=== PATIENT | female | born 1960 | race Caucasian/White ===

== ENCOUNTER → 2023-01-25 09:15 | Outpatient (BNVA) | payer OTHER, SELFPAY | PROVIDERS: PCP Nurse Practitioner; Visit Provider Podiatrist Foot & Ankle Surgery | DX: S93.621A Sprain of tarsometatarsal ligament of right foot, initial encounter; W08.XXXA Fall from other furniture, initial encounter | CPT/HCPCS: 73630; 99203 ==

== ENCOUNTER 2023-01-30 19:28 | Emergency (ER) | payer OTHER, SELFPAY ==
[2023-01-30 19:33] VITALS: BP 111/70; PULSE 77; RESP 18; TEMP 36.7; O2SAT 98; BMI 20.1
--- NOTE | 2023-01-30 19:36 | ECG_ITS ---
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 Measurements Intervals [place] Rate: 89 P: 78 WV: 100 QRS: 61 QRSD: 86 T: 50 QT: 375 QTc: 457 Interpretive Statements SINUS RHYTHM WITH SHORT WV INTERVAL No previous ECG available for comparison Electronically Signed On 01-30-2023 23:23:46 CDT by Home Spencer M.D. [id number]
--- NOTE | 2023-01-30 19:50 | XRR_ITS ---
PROCEDURE INFORMATION: Exam: XR Chest Exam date and time: 01/30/2023 7:59 PM Age: 62 years old Clinical indication: Cough and shortness of breath; Additional info: SOB TECHNIQUE: Imaging protocol: Radiologic exam of the chest. Views: 1 view. COMPARISON: No relevant prior studies available. FINDINGS: Tubes, catheters and devices: Radiopaque structures 2.2 cm in length by 0.3 cm in width projected over mid to upper heart can be correlated for devices overlying the patient. Lungs: Unremarkable. No consolidation. Pleural spaces: Unremarkable. No pleural effusion. No pneumothorax. Heart/Mediastinum: Unremarkable. No cardiomegaly. Bones/joints: No acute findings. XR/XR chest 1V portable [id number] IMPRESSION: No acute findings.
[2023-01-30] MEDS: dexamethasone 10 mg/mL INJ IM (20:11)
[2023-01-30] MEDS: ipratropium-albuterol 3 mL Neb INHALATION (20:21)
[2023-01-30] MEDS: albuterol 2.5 mg/3 mL Neb INHALATION (20:21)
[2023-01-30 20:24] VITALS: PULSE 83; RESP 18; O2SAT 97
[2023-01-30 20:32] VITALS: PULSE 85; RESP 18; O2SAT 97
--- NOTE | 2023-01-30 21:18 | ED_ITS ---
HPI - Asthma General: Chief Complaint: Asthma Stated Complaint: shortness of breath, coughing Time Seen by Provider: 01/30/23 19:48 History of Present Illness: 62-year-old female with a history of asthma presents emergency room with sudden onset of wheezing and nonproductive cough that started about 30 to 40 minutes prior to coming to the emergency room. Patient described the cough as nonproductive denies coughing up blood or vomiting blood. No leg swelling or calf tenderness. No chest pain, nausea or vomiting. No known sick contact or recent foreign travel denies any runny nose any congestion or sore throat. Associated symptoms: Reports non-productive cough; Deny fever(s) or hemoptysis Review of Systems General: Reports: 10 or more systems reviewed and unremarkable except in HPI and below Const: Denies: fever(s), chills, body aches, change in appetite, change in weight, fatigue, malaise, night sweats, diaphoresis, change in sleep pattern or daytime sleepiness Resp: Reports: dyspnea, non-productive cough and wheezing; Denies: pain on inspiration, change in phlegm color, hemoptysis or chest congestion GI: Denies: abdominal pain, nausea, vomiting, hematemesis, coffee ground emesis or dysphagia PFSH ED PFSH: Social History (Updated 01/25/23 @ 09:27 by Dominic Brady LPN) Smoking and tobacco/nicotine status: former use of tobacco/nicotine Alcohol intake: former Substance/Drug Use: former Physical Exam Const: COMMON NORMALS: no acute distress, average body habitus, patient oriented x3, no limitations, healthy appearing, alert and well nourished HENMT: COMMON NORMALS: normocephalic, atraumatic, hearing grossly normal bilaterally, external ears normal, EAC's normal, TM's normal bilaterally, Normal external nose present, Normal nasal mucous membranes and turbinates present, moist oral mucous membranes, oropharynx normal, dentition normal and gingiva normal HEAD & SCALP: normocephalic and atraumatic NOSE: Normal external nose present and Normal nasal mucous membranes and turbinates present EXTERNAL EAR: Yes external ears normal EXTERNAL AUDITORY CANAL: EAC's normal TYMPANIC MEMBRANE: TM's normal bilaterally Neck/C-Spine: COMMON NORMALS: no JVD Chest: COMMONS NORMALS: normal inspection of the chest, normal palpation of entire chest wall, normal inspection of the breasts and normal palpation of the breasts Breast/axilla inspection: Yes normal inspection of the breasts BREAST/AXILLA PALPATION: Yes normal palpation of the breasts Resp: COMMON NORMALS: normal respiratory effort, No retractions, No use of accessory muscles and percussion normal AUSCULTATION: no crackles, no rales and wheezes PERCUSSION: percussion normal Cardio: COMMON NORMALS: no JVD, regular rate, regular rhythm, S1 normal heart sound present, S2 normal heart sound present, No gallops present (Cardio), No clicks present (Cardio), No murmurs present (Cardio), No rub (Cardio) and Peripheral pulses 2+ throughout RATE: regular rate RHYTHM: regular rhythm HEART SOUNDS: S1 normal heart sound present and S2 normal heart sound present PERIPHERAL PULSES: Peripheral pulses 2+ throughout GI: COMMON NORMALS: Normal to inspection, nondistended, normoactive bowel sounds present, Soft to palpation, non-tender, No hepatosplenomegaly present, no masses and no bruits PALPATION: Yes Soft to palpation and Yes No hepatosplenomegaly present Extremity: COMMON NORMALS: normal to inspection, full ROM, capillary refill normal, no joint enlargement, no clubbing, cyanosis or edema, no calf tenderness and no pedal edema Neuro: COMMON NORMALS: patient oriented x3 SENSORIUM/ORIENTATION: Yes alert Skin: COMMON NORMALS: no rashes or lesions noted, no wounds, turgor normal, no jaundice, no petechiae and no mottling GENERAL SKIN EXAM: no rashes or lesions noted and turgor normal Course Reevaluation(s): Reevaluation #1: Upon assessment patient was comfortable reading a book no acute distress. Patient reveals improvement with current treatment. Vital Signs: Vital signs: Vital Signs Temperature 98.0 F 01/30/23 19:33 Pulse Rate 85 01/30/23 20:32 Respiratory Rate 18 01/30/23 20:32 Blood Pressure 111/70 01/30/23 19:33 Pulse Oximetry 97 01/30/23 20:32 Oxygen Delivery Me thod Room Air 01/30/23 20:32 MDM - Asthma Medical Decision Making Patient made comfortable emergency room and had x-ray was given multiple nebulizer treatment with IM steroid. I discussed the x-ray finding with the patient and close follow-up with PCP recommended Differential Diagnosis Likely acute exacerbation, status asthmaticus, acute asthmatic bronchitis, PE, pneumonia, COPD exacerbation, CHF/Pulmonary Edema, pulmonary edema dystolic, ARDS, pneumothorax and foreign body in trachea Lab Data Radiology Impressions Chest X-Ray 01/30/23 19:50 IMPRESSION: No acute findings. XR interpretation done by ED provider, pending radiology final review EKG Data EKG 1: Interpretation: Sinus rhythm rate of [address] changes[address] No ST elevation ST depression. [place] interval 100 QRS duration 86 Discharge Plan Discharge Patient Disposition: Home Clinical Impression: Asthma with acute exacerbation Condition: Stable Prescriptions: New Zithromax Z-Rocael 250 mg tablet 250 mg PO DAILY 5 Days Qty: 6 0RF Medrol (Rocael) 4 mg tablets,dose pack 4 mg PO DAILY Qty: 21 0RF No Action albuterol sulfate [ProAir HFA] 90 mcg/actuation HFA aerosol inhaler 2 puff inhalation Q6H PRN losartan 25 mg tablet 25 mg PO DAILY trazodone 50 mg tablet 50 mg PO DAILY (DME) custom molded arch supports See Rx Instructions .Route .MEDSUPPLY Qty: 1 0RF Rx Instructions: As directed to be made by the hardeep puente Discharge Orders: Discharge ED (Routine); Ordered 01/30/23 Ordered By: Mauro Mckay Referrals: Amber James FNP [Primary Care Provider] - Discharge Diet: Advance as tolerated Patient Instructions: Opioid Safety, Pain Management Coding Level of Care Code ED Newspaper Reporter for John Sheriadn
[2023-01-30 21:24] VITALS: BP 118/81; PULSE 88; O2SAT 98
== END 2023-01-30 22:13 | disposition home or self-care (01) ==
PROVIDERS: Emergency Provider Family Medicine; PCP Nurse Practitioner
DX: J45.901 Unspecified asthma with (acute) exacerbation (principal); Z87.891 Personal history of nicotine dependence
CPT/HCPCS: 71045; 93005; 94640; 96372; 99284; J1100; J7613

== ENCOUNTER 2023-01-31 11:17 | Outpatient (CLI) | payer OTHER, SELFPAY ==
--- NOTE | 2023-01-31 11:44 | MM_ITS ---
WS: [id number] BILATERAL 3D TOMOSYNTHESIS DIGITAL SCREENING MAMMOGRAPHY WITH CAD CLINICAL INFORMATION: SCREENING HISTORY: Screening mammogram. No current complaints. COMPARISON: 11/01/2021 TECHNIQUE: Bilateral CC and MLO views. FINDINGS: The breasts are composed of heterogeneous fibroglandular density tissue, which can limit the detectio n of small underlying mass lesions. No suspicious mass, asymmetry, calcifications, or architectural d istortion. No evidence of malignancy. Vascular calcification. IMPRESSION: MM/[place] [id number] BI-RADS: 2-Benign FOLLOW UP: 1 Year Follow-up Recommend return to annual screening mammography.
== END 2023-01-31 11:18 | disposition home or self-care (01) ==
PROVIDERS: PCP Nurse Practitioner; Visit Provider Nurse Practitioner
DX: Z12.31 Encounter for screening mammogram for malignant neoplasm of breast (principal)
CPT/HCPCS: 77063; 77067

== ENCOUNTER → 2023-02-22 10:16 | Outpatient (BNVA) | payer OTHER, SELFPAY | PROVIDERS: PCP Nurse Practitioner; Visit Provider Podiatrist Foot & Ankle Surgery | DX: S93.621D Sprain of tarsometatarsal ligament of right foot, subsequent encounter (principal); W20.8XXD Other cause of strike by thrown, projected or falling object, subsequent encounter | CPT/HCPCS: 99213 ==

== ENCOUNTER 2023-02-24 08:59 | Outpatient (CLI) | payer OTHER, SELFPAY ==
--- NOTE | 2023-02-24 09:30 | MR_ITS ---
WS: [id number] EXAMINATION: MR foot RT wo con* [id number] ORDER DATE: 02/24/2023 9:31 AM COMPARISON: None. HISTORY: rule out lisfranc injury CONTRAST: None. TECHNIQUE: Sagittal T1, sagittal STIR, coronal PD, coronal T2, axial T1, axial T2, and axial PD imagi ng with fat saturation technique. FINDINGS: Mild bunion deformity. Normal second tarsometatarsal alignment. No evidence of Lisfranc fracture. Deep to the palpable marker is a small amount of subcutaneous edema. No fractures deep to the palpabl e marker. Metatarsals are otherwise normal in appearance with normal alignment. Normal visualized pro ximal phalanges. Normal cuboid. Normal navicular. Cuneiforms appear normal. No other suspicious findi ngs. IMPRESSION: 1. No evidence of Lisfranc fracture dislocation. 2. Normal bone marrow signal in the metatarsals. No acute fractures. 3. Mild subcutaneous edema deep to the palpable marker dorsal foot. 4. Mild bunion deformity.
== END 2023-02-24 09:00 | disposition home or self-care (01) ==
LOC: RAD 08:59
PROVIDERS: PCP Nurse Practitioner; Visit Provider Podiatrist Foot & Ankle Surgery
DX: S93.621A Sprain of tarsometatarsal ligament of right foot, initial encounter (principal); M21.6X1 Other acquired deformities of right foot; X58.XXXA Exposure to other specified factors, initial encounter; Y93.9 Activity, unspecified; Y92.9 Unspecified place or not applicable; Y99.9 Unspecified external cause status
CPT/HCPCS: 73718

== ENCOUNTER → 2023-02-28 07:59 | Outpatient (BNVA) | payer OTHER, SELFPAY | PROVIDERS: PCP Nurse Practitioner; Visit Provider Podiatrist Foot & Ankle Surgery | DX: M79.671 Pain in right foot (principal) | CPT/HCPCS: 99213 ==

== ENCOUNTER 2023-05-03 13:50 | Outpatient (CLI) | payer OTHER, SELFPAY ==
--- NOTE | 2023-05-03 15:21 | US_ITS ---
WS: [id number] ULTRASOUND RENAL TECHNIQUE: Ultrasound examination of both kidneys. CLINICAL INFORMATION: CKD ABNORMAL LABS COMPARISON: None. FINDINGS: RIGHT: Right kidney is normal in size and appearance. Echogenicity: Normal. Cortical thickness: 1.1 cm; Normal. Hydronephrosis: None. Perinephric fluid: None. Right kidney measures: 8.4 cm x 3.7 cm x 3.8 cm. LEFT: Left kidney is normal in size and appearance. Echogenicity: Normal. Cortical thickness: 1.0 cm; Normal. Hydronephrosis: None. Perinephric fluid: None. Left kidney measures: 8.6 cm x 3.6 cm x 3.0 cm. Normal visualized aorta. Normal bladder. IMPRESSION: 1. Normal renal ultrasound. No hydronephrosis. 2. Normal bladder.
== END 2023-05-03 13:51 | disposition home or self-care (01) ==
PROVIDERS: PCP Nurse Practitioner; Visit Provider Nurse Practitioner
DX: N18.9 Chronic kidney disease, unspecified (principal); R79.9 Abnormal finding of blood chemistry, unspecified
CPT/HCPCS: 76770

== ENCOUNTER → 2023-05-12 09:56 | Outpatient (BNVA) | payer OTHER, SELFPAY | PROVIDERS: PCP Nurse Practitioner; Visit Provider Student in an Organized Health Care Education/Training Program | DX: M23.307 Other meniscus derangements, unspecified meniscus, left knee | CPT/HCPCS: 99203 ==

== ENCOUNTER 2023-05-27 13:00 | Emergency (ER) | payer OTHER, SELFPAY ==
[2023-05-27 13:35] VITALS: BP 122/77; PULSE 73; RESP 16; TEMP 36.6; O2SAT 99; BMI 20.1
--- NOTE | 2023-05-27 13:43 | W.ED.SKABFB ---
HPI - Skin/Abscess/Foreign Bdy General: Chief complaint: Skin/Abscess/Foreign Body Stated complaint: Abscess Time Seen by Provider: 05/27/23 13:32 Source: patient Mode of arrival: ambulatory History of Present Illness: 62-year-old female presents emergency room complaining of abscess on the perineal area that began 2 days ago. Progressively worse no active drainage no fever sweats or chills complaint: rash Onset (ago): day(s) (2) Associated symptoms: Deny chills or fever(s) Review of Systems Const: Denies: fever(s) or chills Card: Denies: chest pain Resp: Denies: dyspnea GI: Denies: abdominal pain : Denies: dysuria, urinary frequency or urinary urgency Musc: Denies: neck pain or back pain Skin/Breast: Denies: rash PFSH ED PFSH: Social History Smoking and tobacco/nicotine status: former use of tobacco/nicotine Alcohol intake: former Substance/Drug Use: former Physical Exam Narrative: EXAM NARRATIVE: Examination of the perineal area to the right of the midline there is a small palpable nodule no overlying redness or erythema no pointing no active drainage it is slightly tender to touch it is a half a centimeter or less round in diameter. Course Vital Signs: Vital signs: Vital Signs Temperature 97.9 F 05/27/23 13:35 Pulse Rate 73 05/27/23 13:35 Respiratory Rate 16 05/27/23 13:35 Blood Pressure 122/77 05/27/23 13:35 Pulse Oximetry 99 05/27/23 13:35 Oxygen Delivery Me thod Room Air 05/27/23 13:35 MDM - Skin/Abscess/Foreign Bdy Medicial Decision Making At this point is a very small area I do not believe it would be easily amenable to incision and drainage. Recommend sitz bath's or applying moist heat. Start Bactrim DS 2 p.o. twice daily if not improving recheck with primary care if worsens significantly return to the emergency room. With that size and concern would be difficult to target well so small even with use of ultrasound I do not know that it could be adequately targeted. Would likely lead to more pain and discomfort then treating conservatively at this point did advise patient that may change it may increase in size may come to point drain its own which is fine if it does increase in size she may need to return to have it incised and drained. Differential Diagnosis Likely abscess of skin or subcutaneous tissue No radiology studies performed this visit Discharge Plan Discharge Patient Disposition: Home Clinical Impression: Abscess of skin or subcutaneous tissue Condition: Stable Prescriptions: New Bactrim DS 800-160 mg tablet 2 tab PO BID 7 Days Qty: 28 0RF No Action albuterol sulfate [ProAir HFA] 90 mcg/actuation HFA aerosol inhaler 2 puff inhalation Q6H PRN losartan 25 mg tablet 25 mg PO DAILY trazodone 50 mg tablet 50 mg PO DAILY (DME) custom molded arch supports See Rx Instructions .Route .MEDSUPPLY Qty: 1 0RF Rx Instructions: As directed to be made by the hardeep puente Medrol (Rocael) 4 mg tablets,dose pack 4 mg PO DAILY Qty: 21 0RF Discharge Orders: Discharge ED (Routine); Ordered 05/27/23 Ordered By: Kale Aguilar Referrals: Amebr James FNP [Primary Care Provider] - Discharge Diet: Usual diet Discharge Activity: Resume usual activity Patient Instructions: Opioid Safety, Pain Management Activity Restrictions/Additional Instructions: Thank you for choosing [facility] for your healthcare needs today. Please realize this is an emergency room and that we are providing you with a medical screening exam and this may not be complete and all inclusive of all the testing and or work up that you may need to determine your ailment or severity of your illness. It is very important that you follow up as instructed or that you return to the Emergency Department should you have concerns or if your condition changes or worsens in any way. You were seen today with a small abscess on the perineal area. Recommend sits baths or moist heat to the affected area start oral antibiotics 2 pills twice a day for 7 days. If worsens or changes return if not improving follow-up with your primary care doctor. Coding Level of Care Code ED Window Installation Subcontractor for John Sheridan
== END 2023-05-27 14:05 | disposition home or self-care (01) ==
PROVIDERS: Emergency Provider Family Medicine; PCP Nurse Practitioner
DX: L02.215 Cutaneous abscess of perineum (principal); Z87.891 Personal history of nicotine dependence
CPT/HCPCS: 99283

== ENCOUNTER → 2023-06-06 11:31 | Outpatient (BNVA) | payer OTHER, SELFPAY | PROVIDERS: PCP Nurse Practitioner; Referring Provider Nurse Practitioner; Visit Provider Surgery | DX: K64.9 Unspecified hemorrhoids (principal); M20.11 Hallux valgus (acquired), right foot | CPT/HCPCS: 99203; 99214 ==

== ENCOUNTER 2023-06-08 12:44 | Outpatient (CLI) | payer OTHER, SELFPAY ==
--- NOTE | 2023-06-08 13:00 | MR_ITS ---
WS: [id number] MRI LEFT KNEE HISTORY: knee pain COMPARISON: 03/21/2023 radiograph Anterior cruciate ligament: Intact. Posterior cruciate ligament: Intact. Medial collateral ligament: Intact. Posterior lateral corner structures: Intact. Medial menisci: Intrasubstance degeneration of the posterior horn. The signal is only intermediate bu t does extend to the intra-articular surface. No definite tear. Lateral meniscus: Intact. Normal signal, size and shape. Extensor mechanism: Distal quadriceps tendon and patellar tendons are intact. Fluid and soft tissue: Small suprapatellar joint effusion. No Covarrubias's cyst. Osseous and articular structures: Patellofemoral compartment: Normal. Medial compartment: Mild narrowing of the medial compartment. No marrow edema. There is an abnormal a ppearance of the medial head of the gastrocnemius tendon attachment to the posterior femoral condyle. Consistent with at least a partial if not high-grade tear. Not a complete tear. There is increased f luid and signal extending to the cortex of the bone. Increased signal in the distal medial head of th e gastrocnemius tendon. Lateral compartment: Minimal fissuring and thinning of the cartilage. No marrow edema. IMPRESSION: 1. Partial tear involving insertion medial head of the gastrocnemius tendon to the posterior medial femoral condyle. 2. Normal ACL. 3. Intrasubstance degeneration posterior horn medial meniscus but no tear.
== END 2023-06-08 12:45 | disposition home or self-care (01) ==
LOC: RAD 12:44
PROVIDERS: PCP Nurse Practitioner; Visit Provider Student in an Organized Health Care Education/Training Program
DX: M25.562 Pain in left knee (principal)
CPT/HCPCS: 73721

== ENCOUNTER → 2023-07-06 08:27 | Outpatient (BNVA) | payer OTHER, SELFPAY | PROVIDERS: PCP Nurse Practitioner; Visit Provider Student in an Organized Health Care Education/Training Program | DX: S86.112A Strain of other muscle(s) and tendon(s) of posterior muscle group at lower leg level, left leg, initial encounter; X58.XXXA Exposure to other specified factors, initial encounter | CPT/HCPCS: 20610; 99214; J3301 ==

== ENCOUNTER 2023-07-21 05:23 | Day surgery (SDC) | payer OTHER, SELFPAY ==
[2023-07-21] VITALS (7 sets, daily range): BP systolic 110–137; BP diastolic 57–87; PULSE 63–90; RESP 12–18; TEMP 36.2–36.6; O2SAT 95–100; BMI 20.1
--- NOTE | 2023-07-21 | XR_ITS ---
WS: [id number] C-ARM RADIOGRAPHS RIGHT FOOT; 2 IMAGES HISTORY: EDILBERTO PICS COMPARISON: None available. Intraoperative imaging during screw and plate fixation first tarsometatarsal articulation. IMPRESSION: Intraoperative imaging during screw and plate fixation across the first tarsometatarsal articulation.
[2023-07-21] MEDS: sodium chloride 0.9% 1,000 ML 30 ML IV (06:06)
--- NOTE | 2023-07-21 06:34 | PM.OPSURHP ---
Providers/Chief Complaint Primary Care Provider: VIVIENNE Arauz Chief Complaint: M79.675 History of Present Illness Maral Valdes is a 62 year old female presenting for follow up on right foot pain. Patient has been modifying her shoes laces to right shoe. She states that no change in her discomfort since last visit. She has had increased pain to her right foot, wishing to discuss surgical options as she has failed supportive shoes, anti-inflammatories, custom orthotics and activity modifications. Patient denies any subjective nausea, vomiting, fever, chills, shortness of breath or chest pain. Review of Systems General: Reports: 10 or more systems reviewed and unremarkable except in HPI and below Const: Denies: fever(s) or chills Eyes: Denies: change in vision Card: Denies: chest pain or palpitations Resp: Denies: dyspnea or productive cough GI: Denies: abdominal pain, nausea or vomiting : Denies: flank pain Musc: Reports: extremity pain, joint pain, joint stiffness, limited range of motion and deformity Skin/Breast: Reports: skin tenderness; Denies: rash Neuro: Reports: difficulty walking; Denies: numbness in extremities, sensory changes or frequent falls Psych: Denies: suicidal ideation Evert/Lymph: Denies: easy bruising Medications/Allergies Home Medications Medication Instructions Recorded Confirmed Last Taken Type albuterol sulfate 90 mcg/actuation 2 puff inhalation Q6H PRN 01/25/23 07/21/23 07/20/23 History aerosol inhaler (ProAir HFA) Shortness Of Breath custom molded arch supports #1 ea 01/25/23 07/06/23 Unknown Rx losartan 25 mg tablet 25 mg PO DAILY 01/25/23 07/20/23 07/20/23 History trazodone 50 mg tablet 50 mg PO DAILY 01/25/23 07/20/23 07/20/23 History omeprazole 40 mg capsule,delayed 40 mg PO DAILY 07/20/23 07/21/23 07/21/23 05:55 History release sertraline 25 mg tablet 25 mg PO DAILY 07/20/23 07/20/23 07/20/23 History Allergies Allergy/AdvReac Type Severity Reaction Status Date / Time No Known Allergies Allergy Verified 07/06/23 08:48 PFSH PFSH: Family History Mother Hypertension Social History Smoking and tobacco/nicotine status: former use of tobacco/nicotine Alcohol intake: former Substance/Drug Use: former Vital Signs Vitals Signs: Last Vital Signs Temp 97.9 F 07/21/23 06:02 Pulse 63 07/21/23 06:02 Resp 18 07/21/23 06:02 BP 116/57 07/21/23 06:02 Pulse Ox 97 07/21/23 06:02 O2 Del Method Room Air 07/21/23 06:18 Weight: Weight last 48 hrs Weight 110 lb Physical Exam Narrative: EXAM NARRATIVE: GENERAL: Patient is alert and oriented ?3 and in no acute distress. The following is a focused bilateral lower extremity exam. VASCULAR: Dorsalis pedis and posterior tibial arteries palpable +2. Capillary refill time less than 3 seconds to the distal hallux bilaterally. Calf is supple and nontender proximally and distally. No pedal edema appreciated. Pedal hair growth present. NEUROLOGICAL: Epicritic and protopathic sensations grossly intact to the lower extremities. +2 Achilles tendon reflex noted bilaterally. Negative Tinel sign upon percussion of lower extremity nerves. DERMATOLOGICAL: Lower extremity skin is well-hydrated, normal texture and turgor. There are no open sores or lesions noted to the lower extremities. No erythema or ecchymosis present to the bilateral legs and feet. MUSCULOSKELETAL: Pain to palpation at right first tarsometatarsal joint with osseous prominence dorsally at the right first metatarsal base and medial cuneiform. Hallux valgus to the right foot. Muscle strength +5 in all 3 planes. CARDIOVASCULAR: S1, S2, normal rate, normal rhythm. Dorsalis pedis and posterior tibial arteries palpable. LUNGS: Clear to auscltation, no use of acessory muscles, no crackles or wheezes. A&P Assessment and plan (1) Right foot pain: (2) Hallux valgus (acquired), right foot: Plan 62 year old female patient presenting to clinic for follow up on right foot pain. Patient has been modifying her shoes laces to right shoe. She states that no change in her discomfort since last visit. She has had increased pain to her right foot, wishing to discuss surgical options as she has failed supportive shoes, anti-inflammatories, custom orthotics and activity modifications. Discussed continue with conservative treatments vs. surgical treatments patient wishes to proceed with surgical intervention at next available opportunity. I reviewed at length with the patient, the risks, potential complications, benefits, alternatives, expectations, and typical outcomes associated with the surgery. The risks and potential complications were explained in detail, including but not limited to infection, wound dehiscence or soft tissue complications, bleeding and hematoma, chronic edema, neuritis or nerve damage producing numbness or chronic pain, CRPS, failure to relieve pain or worsening pain, thick / painful / unsightly scar, limited motion / stiffness, malposition, delayed union, malunion, or nonunion, fracture, reaction to implants, anesthetic complications, venous thromboembolism, and deformity recurrence. I discussed the notion of no regrets with the patient as it pertains to complications and outcomes. The patient seemed to understand the nature of the proposed care and required convalescence. They asked appropriate questions, answered to their satisfaction. They are aware no guarantees can be made as to a satisfactory outcome and they understand there may be other possible unforeseen complications or outcomes not listed here that will be treated accordingly if they arise. There were no written or implied guarantees given to the patient. They gave informed consent to proceed. June 16, 2023 outpatient surgery Right Lapidus bunionectomy. Lilian Sawyer MAC Supine TPS Mini C arm 60 minutes Coding Level of Care Code Acute Code for Chg Fwd Diagnoses Right foot pain M79.671 Hallux valgus (acquired), right foot M20.11
--- NOTE | 2023-07-21 06:36 | P.HPUD_ITS ---
Surgery/Procedure H&P Update DATE OF PROCEDURE: July 21, 2023 DATE H&P PERFORMED: 07/21/23 H&P UPDATE INFORMATION: I have reviewed H&P completed within last 30 days, I have examined patient prior to procedure, No changes to prior documentation and H&P is in [facility] EMR on date indicated PREOP DIAGNOSIS: Right bunion PLANNED PROCEDURE: Operation Date: 07/21/23 07:00 Proposed Procedures p Bunionectomy Lapidus(Right) - Curt Mares DPM
[2023-07-21] MEDS: ceFAZolin 2,000 MG in sodium chloride 0.9% (plus) 50 ML 100 MG IV (07:05)
--- NOTE | 2023-07-21 07:27 | ANES.PREANE2 ---
Pre-Anesthetic Assessment Height/Weight: Height 1.57 m Weight 49.895 kg Temp Pulse Resp BP Pulse Ox O2 Del Method 97.9 F 63 18 116/57 97 Room Air 07/21/23 06:02 07/21/23 06:02 07/21/23 06:02 07/21/23 06:02 07/21/23 06:02 07/21/23 06:18 Preop Diagnosis: Right bunion Operation Date: 07/21/23 07:00 Proposed Procedures p Bunionectomy Lapidus(Right) - Curt Mares DPM Last intake: Intake Last Liquid Date 07/20/23 Last Liquid Time 22:00 Last Solid Date 07/20/23 Last Solid Time 20:00 Social No alcohol and No tobacco (quit smoking 3 years ago) Exam alert, oriented x 3, clear to auscultation bilaterally and regular rate & rhythm Airway Submandibular: Other (limited TM distance) Cervical ROM: within normal limits Mallampati: Class III History/ROS No significant history except as noted GI Gastroesophageal Reflux Disease Anesthetic Plan ASA status: 2 Anesthesia: MAC Medications/Allergies Home Medications Medication Instructions Recorded Confirmed Last Taken Type albuterol sulfate 90 mcg/actuation 2 puff inhalation Q6H PRN 01/25/23 07/21/23 07/20/23 History aerosol inhaler (ProAir HFA) Shortness Of Breath custom molded arch supports #1 ea 01/25/23 07/06/23 Unknown Rx losartan 25 mg tablet 25 mg PO DAILY 01/25/23 07/20/23 07/20/23 History trazodone 50 mg tablet 50 mg PO DAILY 01/25/23 07/20/23 07/20/23 History omeprazole 40 mg capsule,delayed 40 mg PO DAILY 07/20/23 07/21/23 07/21/23 05:55 History release sertraline 25 mg tablet 25 mg PO DAILY 07/20/23 07/20/23 07/20/23 History hydrocodone 10 mg-acetaminophen 1 tab PO Q6H PRN pain 7 days #28 07/21/23 Unknown Rx 325 mg tablet tabs Allergies Allergy/AdvReac Type Severity Reaction Status Date / Time No Known Allergies Allergy Verified 07/06/23 08:48 Current Medications Generic Name Dose Route Start Last Admin Trade Name Freq PRN Reason Stop Dose Admin Sodium Chloride 1,000 mls @ 30 mls/hr 07/21/23 06:00 07/21/23 06:06 Sodium Chloride 0.9% IV 07/22/23 05:59 30 mls/hr .Q24H ZARINA Administration PFSH Anesthesia Family History Mother Hypertension Social History Smoking and tobacco/nicotine status: former use of tobacco/nicotine Alcohol intake: former Substance/Drug Use: former Data Anesthesia Cardiac Studies: No Data to Display
[2023-07-21] MEDS: BUPivacaine 0.5% INJ 10 mL INJECTION ×2 (07:35)
[2023-07-21] MEDS: BUPivacaine liposome 13.3 mg/mL SDV 10 mL 133 MG INFILTRATI (07:36)
--- NOTE | 2023-07-21 07:54 | PM.OP ---
Operative Report Date of procedure: July 21, 2023 Pre-op diagnosis: Right foot pain M79.671, hallux valgus, right foot M20.11 Post-op diagnosis: Right foot pain M79.671, hallux valgus, right foot M20.11 Procedure done: Right Lapidus bunionectomy. CPT code 46825 Implants: [place] 4 mm homerun screw [place] primary Lapidus plate with 3.5 millimeter screws 3-0 Vicryl, 4-0 Vicryl, 4-0 nylon, 20 cc of Marcaine 0.5% plain and 10 cc of Exparel Specimens removed/disposition: no specimens Pathology: No pathology Surgeon: Curt Mares DPM Business Systems Technician: Kate Estimated blood loss: 2 28 IV fluids: 0 Urine output: 0 Complications: None Brief History: 62 year old female patient presenting to clinic for follow up on right foot pain. Patient has been modifying her shoes laces to right shoe. She states that no change in her discomfort since last visit. She has had increased pain to her right foot, wishing to discuss surgical options as she has failed supportive shoes, anti-inflammatories, custom orthotics and activity modifications. Discussed continue with conservative treatments vs. surgical treatments patient wishes to proceed with surgical intervention at next available opportunity. I reviewed at length with the patient, the risks, potential complications, benefits, alternatives, expectations, and typical outcomes associated with the surgery. The risks and potential complications were explained in detail, including but not limited to infection, wound dehiscence or soft tissue complications, bleeding and hematoma, chronic edema, neuritis or nerve damage producing numbness or chronic pain, CRPS, failure to relieve pain or worsening pain, thick / painful / unsightly scar, limited motion / stiffness, malposition, delayed union, malunion, or nonunion, fracture, reaction to implants, anesthetic complications, venous thromboembolism, and deformity recurrence. I discussed the notion of no regrets with the patient as it pertains to complications and outcomes. The patient seemed to understand the nature of the proposed care and required convalescence. They asked appropriate questions, answered to their satisfaction. They are aware no guarantees can be made as to a satisfactory outcome and they understand there may be other possible unforeseen complications or outcomes not listed here that will be treated accordingly if they arise. There were no written or implied guarantees given to the patient. They gave informed consent to proceed. Procedure: Pat sedation the patient was brought to the operating room and remained on the gurney in supine position. A timeout was performed. Anesthesia was then administered by the anesthesia service. Local anesthesia was injected by myself consisting of 20 cc of 0.5 to Marcaine plain and a proximal male block fashion to the right foot. Additional 10 cc of Exparel proximal to the incision in a V-block fashion subcutaneously per manager organizational recommendation and technique. Well-padded pneumatic tourniquet applied to the right ankle. The right lower extremity was scrubbed, prepped and draped utilizing normal aseptic technique. Right foot was exanguinated with an Esmarch bandage and tourniquet inflated to 250 mmHg. Attention was directed to the right foot where bunion deformity was appreciated. There is hypermobility at the first metatarsal and medial cuneiform articulation. A dorsal medial incision was performed medial and parallel to the extensor hallucis longus tendon through skin with a #15 blade with dissection carried down through subcutaneous tissue to the layer periosteum and joint capsule utilizing sharp and blunt technique. Care was taken to retract and preserve neurovascular and tendinous structures. All bleeders were ligated and cauterized as necessary. Steinmann pin and Hinchman utilized to distract the first metatarsal base and medial cuneiform joint which was then prepped for arthrodesis utilizing curettage, subchondral drilling and good autologous bone graft visualized with subchondral drilling with fenestrating drill bit. This was then reduced utilizing manual manipulation the first metatarsal was held parallel to the second and the rotated this was then fixated utilizing a homerun screw from [place] this was a 4 mm screw with short threads, dorsal distal to proximal plantar and AP, oblique and lateral view of C arm confirmed that the screw did not violate the adjacent joints. The anatomic reduction of the first and metatarsal angle was appreciated followed by fixation of a locking plate to the dorsal medial aspect of the arthrodesis site utilizing a primary arthrodesis plate provided by Miguel A with 3.5 millimeter screws with excellent bony apposition and compression noted, once again AP, oblique and lateral views confirmed reduction of the intermetatarsal angle, improved frontal plane alignment, mild plantarflexion in the sagittal plane which was to provide additional longitudinal arch reconstruction and no adjacent joints were violated. The incision was irrigated with copious amounts of sterile skin solution. This was then closed in a layered fashion. Periosteum and capsule were reapproximated utilizing 3-0 Vicryl. Subcutaneous tissue was reapproximated utilizing 4-0 Vicryl and skin with 4-0 nylon. The incision was dressed with Adaptic, sterile 4 x 4's, Kerlix and Casey wrap. Tourniquet was deflated and a prompt hyperemic response is noted to the distal digits of the right foot. Patient tolerated the procedure well and was transferred to the PACU with vital signs stable and vascular status intact. She was fitted with a cam boot. She may be protected weightbearing with cam boot as tolerated below threshold of pain. Advised to elevate her foot while resting. Was prescribed hydrocodone 10/325 mg to be taken judiciously as needed for pain every 6 hours. May additionally supplement with ibuprofen. Patient was provided at home care instructions, scheduled follow-up and my cell phone number to contact me with any postoperative questions or concerns.
--- NOTE | 2023-07-21 11:17 | ANE.PACU2 ---
Inpatient post-anesthesia follow up: Vital signs: Temperature 97.2 F Pulse Rate 65 Respiratory Rate 18 Blood Pressure 137/87 Pulse Oximetry 100 Oxygen Delivery Me thod Room Air Oxygen Flow Rate Fraction of Inspir ed Oxygen Hydration adequate: Yes Nausea and vomiting: No Pain level: 1 Mental status: Baseline
== END 2023-07-21 08:52 | disposition home or self-care (01) ==
PROVIDERS: PCP Nurse Practitioner; Visit Provider Podiatrist Foot & Ankle Surgery
PROC: (CPT 28297; principal; 2023-07-21 07:00)
DX: M20.11 Hallux valgus (acquired), right foot (principal); K21.9 Gastro-esophageal reflux disease without esophagitis; Z87.891 Personal history of nicotine dependence
CPT/HCPCS: 28297; 73620; 76000; C1713; C9290; J0690; J2704; J3010; J3490; J7030

== ENCOUNTER → 2023-08-03 13:17 | Outpatient (BNVA) | payer OTHER, SELFPAY | PROVIDERS: PCP Nurse Practitioner; Visit Provider Podiatrist Foot & Ankle Surgery | DX: Z98.890 Other specified postprocedural states (principal) | CPT/HCPCS: 73630; 99024 ==

== ENCOUNTER → 2023-08-31 12:42 | Outpatient (BNVA) | payer OTHER, SELFPAY | PROVIDERS: PCP Nurse Practitioner; Visit Provider Podiatrist Foot & Ankle Surgery | DX: Z98.890 Other specified postprocedural states (principal) | CPT/HCPCS: 73630; 99024 ==

== ENCOUNTER → 2023-09-14 12:53 | Outpatient (BNVA) | payer OTHER, SELFPAY | PROVIDERS: PCP Nurse Practitioner; Visit Provider Podiatrist Foot & Ankle Surgery | DX: Z98.890 Other specified postprocedural states (principal) | CPT/HCPCS: 73630; 99024 ==

== ENCOUNTER → 2023-10-26 13:42 | Outpatient (BNVA) | payer OTHER, SELFPAY | PROVIDERS: PCP Nurse Practitioner; Visit Provider Podiatrist Foot & Ankle Surgery | DX: Z98.890 Other specified postprocedural states (principal); M96.0 Pseudarthrosis after fusion or arthrodesis | CPT/HCPCS: 73630; 99213 ==

== ENCOUNTER → 2023-12-28 13:12 | Outpatient (BNVA) | payer OTHER, SELFPAY | PROVIDERS: PCP Nurse Practitioner; Visit Provider Podiatrist Foot & Ankle Surgery | DX: Z98.890 Other specified postprocedural states (principal); M96.0 Pseudarthrosis after fusion or arthrodesis | CPT/HCPCS: 73630; 99213 ==

== ENCOUNTER → 2024-02-20 08:18 | Outpatient (BNVA) | payer OTHER, SELFPAY | PROVIDERS: PCP Nurse Practitioner; Visit Provider Surgery | DX: K21.9 Gastro-esophageal reflux disease without esophagitis (principal); R03.0 Elevated blood-pressure reading, without diagnosis of hypertension | CPT/HCPCS: 99214 ==

== ENCOUNTER 2024-02-29 08:46 | Day surgery (SDC) | payer OTHER, SELFPAY ==
[2024-02-29 09:08] VITALS: BP 135/75; PULSE 73; RESP 20; TEMP 36.4; O2SAT 96; BMI 21.0
--- NOTE | 2024-02-29 09:15 | P.HPUD_ITS ---
Surgery/Procedure H&P Update DATE OF PROCEDURE: February 29, 2024 DATE H&P PERFORMED: 02/20/24 H&P UPDATE INFORMATION: I have reviewed H&P completed within last 30 days, I have examined patient prior to procedure, No changes to prior documentation and [place] [facility] [place] indicated PLANNED PROCEDURE: Operation Date: 02/29/24 10:20 Proposed Procedures p EGD- 91838, K21.9(Not Applicable) - Zuhair Barahona MD
--- NOTE | 2024-02-29 09:15 | W.PM.OPSUD ---
Surgery/Procedure H&P Update DATE OF PROCEDURE: February 29, 2024 DATE H&P PERFORMED: 02/20/24 H&P UPDATE INFORMATION: I have reviewed H&P completed within last 30 days, I have examined patient prior to procedure, No changes to prior documentation and H&P is in [facility] [place] on date indicated PLANNED PROCEDURE: Operation Date: 02/29/24 10:20 Proposed Procedures p EGD- 59014, K21.9(Not Applicable) - Zuhair Barahona MD
[2024-02-29] MEDS: sodium chloride 0.9% 1,000 ML 30 ML IV (09:18)
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
[2024-02-29 10:44] VITALS: BP 122/74; PULSE 71; RESP 14; TEMP 36.3; O2SAT 97
[2024-02-29 10:57] VITALS: BP 128/83; PULSE 71; RESP 18; O2SAT 98
--- NOTE | 2024-02-29 11:08 | ANE.PACU2 ---
Inpatient post-anesthesia follow up: Airway intact: Yes Vital signs: Temperature 97.3 F Pulse Rate 71 Respiratory Rate 18 Blood Pressure 128/83 Pulse Oximetry 98 Oxygen Delivery Me thod Room Air Oxygen Flow Rate Fraction of Inspir ed Oxygen Hydration adequate: Yes Nausea and vomiting: No Pain level: 1 Mental status: Baseline
== END 2024-02-29 11:08 | disposition home or self-care (01) ==
PROVIDERS: PCP Nurse Practitioner; Visit Provider Surgery
PROC: 0DJ08ZZ Inspection of Upper Intestinal Tract, Via Natural or Artificial Opening Endoscopic (ICD-10-PCS; CPT 43235; principal; 2024-02-29 10:20)
DX: K21.9 Gastro-esophageal reflux disease without esophagitis (principal); K29.70 Gastritis, unspecified, without bleeding; Z87.891 Personal history of nicotine dependence; I10 Essential (primary) hypertension; E78.5 Hyperlipidemia, unspecified
CPT/HCPCS: 43239; 88305; J2704; J7030

== ENCOUNTER → 2024-03-13 08:08 | Outpatient (BNVA) | payer OTHER, SELFPAY | PROVIDERS: PCP Nurse Practitioner; Visit Provider Podiatrist Foot & Ankle Surgery | DX: Z98.890 Other specified postprocedural states (principal); M96.0 Pseudarthrosis after fusion or arthrodesis | CPT/HCPCS: 73630; 99213 ==

== ENCOUNTER → 2024-03-20 09:35 | Outpatient (BNVA) | payer OTHER, SELFPAY | PROVIDERS: PCP Nurse Practitioner; Visit Provider Surgery | DX: Z09 Encounter for follow-up examination after completed treatment for conditions other than malignant neoplasm (principal) | CPT/HCPCS: 99213 ==

== ENCOUNTER → 2024-05-06 14:50 | Outpatient (BNVA) | payer OTHER, SELFPAY | PROVIDERS: PCP Nurse Practitioner; Visit Provider Podiatrist Foot & Ankle Surgery | DX: Z98.890 Other specified postprocedural states (principal); M96.0 Pseudarthrosis after fusion or arthrodesis; T84.84XA Pain due to internal orthopedic prosthetic devices, implants and grafts, initial encounter; Y79.2 Prosthetic and other implants, materials and accessory orthopedic devices associated with adverse incidents | CPT/HCPCS: 73630; 99214 ==

== ENCOUNTER 2024-05-08 19:11 | Emergency (ER) | payer OTHER, SELFPAY ==
[2024-05-08 19:21] VITALS: BP 126/80; PULSE 76; RESP 16; TEMP 36.4; O2SAT 100; BMI 21.9
[2024-05-08 21:47] LABS: Basophils % 0.5 %; Eosinophils # 0.2 10^3/uL (0.0-0.8); Hematocrit 38.3 % (36-47); Lymphocytes # 2.8 10^3/uL (0.8-4.8); Lymphocytes % 44.4 %; Mean Corpuscular HGB Conc 33.4 g/dL (30-55); Mean Corpuscular Hemoglobin 31.8 pg (27-33); Mean Corpuscular Volume 95.3 fl (85-98); Mean Platelet Volume 9.9 fL (7.4-10.4); Monocytes # 0.5 10^3/uL (0.2-0.9); Monocytes % 8.1 %; Neutrophils # 2.81 10^3/uL (1.8-7.7); Neutrophils % 43.8 %; Nucleated Red Blood Cells % 0 %; Platelet Count 186 10^3/cmm (157-399); Red Blood Count 4.02 10^6/uL (3.85-5.65); Red Cell Distribution Width 11.9 % (12.1-15.1)
[2024-05-08 22:07] LABS: Alanine Aminotransferase 20 U/L (0-33); Albumin Level 4.5 g/dL (3.5-5.2); Alkaline Phosphatase 134 U/L (35-105); Anion Gap 18.1 (5-19); Aspartate Amino Transferase 29 U/L (0-32); Blood Urea Nitrogen 14 mg/dL (8-23); Calcium 9.4 mg/dL (8.5-10.5); Carbon Dioxide 23 mmol/L (22-29); Chloride 103 mmol/L (98-107); Globulin 2.7 g/dL (1.3-4.6); Glomerular Filtration Rate 50.3 mL/min (90-130); Glucose 89 mg/dL (65-115); Osmolality Calculated 290 mOsm/kg (285-295); Potassium 4.1 mmol/L (3.5-5.1); Sodium 140 mmol/L (136-145); Total Bilirubin 0.3 mg/dL (0.15-1.2); Total Protein 7.2 g/dL (6.6-8.7)
[2024-05-08 22:17] LABS: Erythrocyte Sedimentation Rate 1 mm/hr (0-15)
--- NOTE | 2024-05-08 22:33 | W.ED.FEVER ---
HPI - Fever General: Chief Complaint: Fever Stated Complaint: fever. pre surg worried Time Seen by Provider: 05/08/24 22:16 Source: patient Mode of arrival: ambulatory Limitations: no limitations History of Present Illness: Patient is a 63-year-old female who reports to the emergency department complaining of fever. She states she has surgery on her foot for this Monday, is worried they will not take her to surgery if she is having a fever. States she has been running low-grade fever does not report to me a value. 97.5 is her temperature here, she has not taken any medications. She has no other symptoms to report other than noting red specks in her urine, was concerned due to her history of kidney stones. No other pertinent past medical history to report. MD elicited complaint: fever Onset (ago): hour(s) Associated symptoms: Reports no associated symptoms; Deny abdominal pain, flank pain, chills, chest pain, diarrhea, dysuria, headache(s), nausea or vomiting Treatments prior to arrival fever: none Related Data Home Medications Medication Instructions Recorded Confirmed albuterol sulfate 90 mcg/actuation 2 puff inhalation Q6H PRN 01/25/23 05/06/24 aerosol inhaler (ProAir HFA) Shortness Of Breath losartan 25 mg tablet 25 mg PO QPM 01/25/23 05/06/24 trazodone 50 mg tablet 50 mg PO QPM 01/25/23 05/06/24 escitalopram oxalate 10 mg tablet 10 mg PO QPM 02/20/24 05/06/24 albuterol sulfate 2.5 mg/3 mL 2.5 mg inhalation Q6H PRN 02/27/24 05/06/24 (0.083 %) solution for nebulization Shortness Of Breath Or Wheezing Previous Rx's Medication Instructions Recorded custom molded arch supports #1 ea 01/25/23 Bone stimulator to right foot #1 ea 10/26/23 omeprazole 40 mg capsule,delayed 40 mg PO BID 1 month #60 caps 03/20/24 release cefdinir 300 mg capsule 300 mg PO BID 7 days #14 caps 05/08/24 Allergies Allergy/AdvReac Type Severity Reaction Status Date / Time No Known Allergies Allergy Verified 05/06/24 14:48 Review of Systems General: Reports: 10 or more systems reviewed and unremarkable except in HPI and below Const: Reports: fever(s); Denies: chills or fatigue Eyes: Denies: change in vision ENMT: Denies: throat pain, ear or mastoid pain or nasal discharge Card: Denies: chest pain, palpitations, swelling of feet/ankles or lightheadedness Resp: Denies: dyspnea, productive cough or wheezing GI: Denies: abdominal pain, nausea, vomiting, diarrhea or constipation : Denies: flank pain, difficulty voiding, dysuria or urinary frequency Musc: Denies: neck pain, back pain or joint pain Skin/Breast: Denies: rash Neuro: Denies: headache(s), numbness in extremities or weakness in extremities PFSH ED PFSH: Family History Mother Hypertension Social History Smoking and tobacco/nicotine status: former use of tobacco/nicotine Alcohol intake: former Substance/Drug Use: former Physical Exam Const: COMMON NORMALS: no acute distress and no limitations GENERAL APPEARANCE: cooperative, comfortable and well developed ORIENTATION/CONSCIOUSNESS: Yes awake HENMT: COMMON NORMALS: normocephalic, atraumatic and hearing grossly normal bilaterally HEAD & SCALP: normocephalic and atraumatic Eye: COMMON NORMALS: Equal, round and reactive pupils present, EOMs intact bilaterally and conjunctivae normal CONJUNCTIVA: Yes conjunctivae normal PUPIL: Yes Equal, round and reactive pupils present Neck/C-Spine: COMMON NORMALS: full ROM, supple and no JVD Resp: COMMON NORMALS: normal respiratory effort, No retractions, No use of accessory muscles and clear to auscultation bilaterally AUSCULTATION: clear to auscultation bilaterally Cardio: COMMON NORMALS: no JVD, regular rate, regular rhythm, No clicks present (Cardio), No murmurs present (Cardio) and No rub (Cardio) RATE: regular rate RHYTHM: regular rhythm GI: COMMON NORMALS: Normal to inspection, nondistended, normoactive bowel sounds present, Soft to palpation and non-tender AUSCULTATION: Yes normoactive bowel sounds PALPATION: Yes Soft to palpation RECTAL EXAM: deferred Extremity: COMMON NORMALS: normal to inspection, full ROM and capillary refill normal Skin: COMMON NORMALS: no rashes or lesions noted GENERAL SKIN EXAM: no rashes or lesions noted Course Vital Signs: Vital signs: Vital Signs Temperature 97.5 F L 05/08/24 19:21 Pulse Rate 76 05/08/24 19:21 Respiratory Rate 16 05/08/24 19:21 Blood Pressure 126/80 05/08/24 19:21 Pulse Oximetry 100 05/08/24 19:21 Oxygen Delivery Me thod Room Air 05/08/24 19:21 MDM - Fever Medical Decision Making Patient presented with fever of unknown origin, though she was having some vague urinary symptoms. Blood work was all normal. Urinalysis did show 11-20 white blood cells as well as leukocytes, with her being symptomatic we will likely treat with antibiotics. However she does have upcoming surgery on Monday with Dr. Mares, attempted to consult late at night but was unable to get a hold, will give shot of ceftriaxone here in the emergency department and prescribe cefdinir. However encouraged patient to hold off on the cefdinir until she is able to speak with Dr. Mares and podiatry in the morning. She has had stated that she already had plans to call and discuss this with them. Did discuss this case with Dr. Albright who agrees with disposition and plan at this time. Lab Data 05/08/24 21:23 05/08/24 21: Laboratory Results WBC 6.40 10^3/uL (3.29-11.43) 05/08/24 21: RBC 4.02 10^6/uL (3.85-5.65) 05/08/24 21: Hgb 12.80 g/dL (11.27-16.99) 05/08/24 21: Hct 38.3 % (36-47) 05/08/24 21: MCV 95.3 fl (85-98) 05/08/24 21: MCH 31.8 pg (27-33) 05/08/24 21: MCHC 33.4 g/dL (30-55) 05/08/24 21: RDW 11.9 % (12.1-15.1) L 05/08/24 21: Plt Count 186 10^3/cmm (157-399) 05/08/24 21: MPV 9.9 fL (7.4-10.4) 05/08/24 21: Neut % (Auto) 43.8 % 05/08/24 21:23 Lymph % (Auto) 44.4 % 05/08/24 21:23 [place] % (Auto) 8.1 % 05/08/24 21:23 Eos % (Auto) 3.0 % 05/08/24 21:23 Baso % (Auto) 0.5 % 05/08/24 21: Neut # (Auto) 2.81 10^3/uL (1.8-7.7) 05/08/24 21:23 Lymph # (Auto) 2.8 10^3/uL (0.8-4.8) 05/08/24 21:23 [place] # (Auto) 0.5 10^3/uL (0.2-0.9) 05/08/24 21: Eos # (Auto) 0.2 10^3/uL (0.0-0.8) 05/08/24 21: Baso # (Auto) 0.0 10^3/uL (0.0-0.1) 05/08/24 21: Nucleated RBC % (auto) 0 % 05/08/24: Nucleated RBCs # 0.0 /100WBC 05/08/24 21: ESR 1 mm/hr (0-15) 05/08/24 21: Sodium 140 mmol/L (136-145) 05/08/24 21: Potassium 4.1 mmol/L (3.5-5.1) 05/08/24 21: Chloride 103 mmol/L (98-107) 05/08/24 21: Carbon Dioxide 23 mmol/L (22-29) 05/08/24 21: Anion Gap 18.1 (5-19) 05/08/24 21: BUN 14 mg/dL (8-23) 05/08/24 21: Creatinine 1.1 mg/dL (0.5-0.9) H 05/08/24 21: GFR Calculation 50.3 mL/min (90-130) L 05/08/24 21:23 Glucose 89 mg/dL (65-115) 05/08/24 21: Calculated Osmolality 290 mOsm/kg (285-295) 05/08/24 21: Calcium 9.4 mg/dL (8.5-10.5) 05/08/24: Total Bilirubin 0.3 mg/dL (0.15-1.2) 05/08/24 21: AST 29 U/L (0-32) 05/08/24 21: ALT 20 U/L (0-33) 05/08/24 21: Alkaline Phosphatase 134 U/L (35-105) H 05/08/24: C-Reactive Protein 3.0 mg/L (0.0-4.9) 05/08/24: Total Protein 7.2 g/dL (6.6-8.7) 05/08/24: Albumin 4.5 g/dL (3.5-5.2) 05/08/24: Globulin 2.7 g/dL (1.3-4.6) 05/08/24: Urine Color Yellow (Yellow) 05/08/24: Urine Appearance Clear (CLEAR) 05/08/24: Urine pH 7.5 (5-7) 05/08/24: Ur Specific [place] 1.016 (1.005-1.030) 05/08/24: Urine Protein Negative (Negative) 05/08/24: Urine Glucose (UA) Negative (Normal) 05/08/24: Urine Ketones Negative (Negative) 05/08/24: Urine Blood Negative (Negative) 05/08/24: Urine Nitrate Negative (Negative) 05/08/24: Urine Bilirubin Negative (Negative) 05/08/24: Urine Urobilinogen 0.2 mg/dL (Negative) 05/08/24: Ur Leukocyte Esterase 1+ (Negative) A 05/08/24: Urine RBC 0-2 /hpf (0-2) 05/08/24: Urine WBC 11-20 /hpf (0-5) H 05/08/24: Ur Squamous Epith Cells 0-5 /hpf (0-5) 05/08/24: Amorphous Sediment Not Reportable 05/08/24 Urine Bacteria None seen /hpf (NONE) 05/08/24 Hyaline Casts 0.40 /lpf 01/22/25 22:30 No radiology studies performed this visit Discharge Plan Discharge Patient Disposition: Home Clinical Impression: Urinary tract infection Condition: Stable Prescriptions: New cefdinir 300 mg capsule 300 mg PO BID 7 Days Qty: 14 0RF No Action albuterol sulfate [ProAir HFA] 90 mcg/actuation HFA aerosol inhaler 2 puff inhalation Q6H PRN (Reason: Shortness Of Breath) losartan 25 mg tablet 25 mg PO QPM trazodone 50 mg tablet 50 mg PO QPM (DME) custom molded arch supports See Rx Instructions .Route .MEDSUPPLY Qty: 1 0RF Rx Instructions: As directed to be made by the hardeep [place] ([facility] [place]) Bone stimulator to right foot See Rx Instructions .Route .MEDSUPPLY Qty: 1 0RF Rx Instructions: As directed by [place] escitalopram oxalate 10 mg tablet 10 mg PO QPM omeprazole 40 mg capsule,delayed release(DR/EC) 40 mg PO BID 30 Days Qty: 60 4RF albuterol sulfate 2.5 mg /3 mL (0.083 %) solution for nebulization 2.5 mg inhalation Q6H PRN (Reason: Shortness Of Breath Or Wheezing) Discharge Orders: Discharge ED (Routine); Ordered 05/08/24 Ordered By: Zuhair Lima Referrals: Amber Jamse FNP [Primary Care Provider] - Patient Instructions: Urinary Tract Infection in Women (ED) Activity Restrictions/Additional Instructions: Please call Dr. Mares's office tomorrow to report your ED visit and for any further action to be taken. Take antibiotics if deemed okay to do so by podiatry. Please return with any new or worsening symptoms. Coding Level of Care Code ED Scholastic Aptitude Test Grader for John Sheridan
[2024-05-08 22:38] LABS: Bilirubin Urine Negative (Negative); Blood Urine Negative (Negative); Glucose Urine UA Negative (Normal); Ketones Urine Negative (Negative); Leukocyte Esterase Urine 1+ (Negative); Nitrate Urine Negative (Negative); Protein Urine Negative (Negative); Specific Gravity, Urine 1.016 (1.005-1.030); Urine Appearance Clear (CLEAR); Urine Color Yellow (Yellow); Urobilinogen Urine 0.2 mg/dL (Negative); pH Urine 7.5 (5-7)
[2024-05-08 22:43] LABS: Add Urine Microscopic? YES; Bacteria Urine None Seen /hpf; RBC Urine 0-2 /hpf (0-2); Squamous Epithelial Cell Urine 0-5 /hpf (0-5)
[2024-05-08 22:51] LABS: Add Urine Culture? Yes
[2024-05-08] MEDS: cefTRIAXone 1,000 MG in water for injection-sterile 2.1 ML 2.1 MG IM (23:17)
[2024-05-08 23:26] VITALS: BP 147/75; PULSE 90; O2SAT 100
[2024-05-09 00:24] VITALS: BP 134/80; PULSE 90; O2SAT 100
== END 2024-05-09 00:26 | disposition home or self-care (01) ==
PROVIDERS: Emergency Medicine; Emergency Provider Physician Assistant; PCP Nurse Practitioner
DX: N39.0 Urinary tract infection, site not specified (principal); Z87.891 Personal history of nicotine dependence; I10 Essential (primary) hypertension
CPT/HCPCS: 36415; 80053; 81001; 85025; 85651; 86140; 87086; 96372; 99284; J0696

== ENCOUNTER 2024-05-17 06:09 | Day surgery (SDC) | payer OTHER, SELFPAY ==
[2024-05-17] VITALS (10 sets, daily range): BP systolic 117–153; BP diastolic 63–92; PULSE 74–100; RESP 15–18; TEMP 36.3–36.8; O2SAT 94–98; BMI 21.9
--- NOTE | 2024-05-17 | XR_ITS ---
WS: [id number] C-ARM RADIOGRAPHS RIGHT FOOT; 2 IMAGES HISTORY: EDILBERTO PICS COMPARISON: None available. Plate and screw fixation across the first tarsometatarsal articulation. XR/XR foot RT min 3V* [id number] IMPRESSION: Intraoperative imaging during fusion at the first tarsal metatarsal joint.
[2024-05-17] MEDS: sodium chloride 0.9% 1,000 ML 30 ML IV (06:45)
--- NOTE | 2024-05-17 06:48 | P.OP_ITS ---
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 Procedure done: 1) hardware removal right foot. CPT code 96348 2) Lapidus bunionectomy right foot. CPT code 84535 3) calcaneal autograft right foot. CPT code 34471 Implants: 3-0 Vicryl, 4-0 Vicryl, 4 nylon, 4.0 mm homerun screw [place] 28, primary Lapidus plate with plantar arm [place] 28, 3.5 mm locking and nonlocking screws [place] 28. Specimens removed/disposition: None Pathology: None Surgeon: Curt Mares DPM Supervisor Ticket Sales: Michael Dockery Estimated blood loss: 2 48 IV fluids: See intraoperative documentation Urine output: None Complications: No complications Findings: Bony nonunion right first metatarsal medial cuneiform arthrodesis site Brief History: X-ray shows tacked hardware at right Lapidus arthrodesis with bony nonunion at the first metatarsal base medial cuneiform fusion site. This is symptomatic should like to discuss surgical options. Has failed conservative treatments as mentioned in HPI. I reviewed at length with the patient, the risks, potential complications, benefits, alternatives, expectations, and typical outcomes associated with the surgery. The risks and potential complications were explained in detail, including but not limited to infection, wound dehiscence or soft tissue complications, bleeding and hematoma, chronic edema, neuritis or nerve damage producing numbness or chronic pain, CRPS, failure to relieve pain or worsening pain, thick / painful / unsightly scar, limited motion / stiffness, malposition, delayed union, malunion, or nonunion, fracture, reaction to implants, anesthetic complications, venous thromboembolism, and deformity recurrence. I discussed the notion of no regrets with the patient as it pertains to complications and outcomes. The patient seemed to understand the nature of the proposed care and required convalescence. They asked appropriate questions, answered to their satisfaction. They are aware no guarantees can be made as to a satisfactory outcome and they understand there may be other possible unforeseen complications or outcomes not listed here that will be treated accordingly if they arise. There were no written or implied guarantees given to the patient. They gave informed consent to proceed. Would entail hardware removal, revisional arthrodesis right midfoot at the first metatarsal base medial cuneiform with calcaneal autograft. Procedure: Under mild sedation the patient was brought to the operating room and remained on the gurney in supine position. A timeout was performed. Anesthesia was then administered by the anesthesia service. Local anesthesia injected by myself consisting of 30 cc of 0.25% Marcaine plain in a proximal Rodriguez block fashion to the right foot followed by an additional 20 cc of Exparel subcutaneously in a grid like fashion at the operative site. Well-padded pneumatic tourniquet was applied to the right ankle. The right lower extremity was then scrubbed, prepped and draped utilizing normal aseptic technique. Right foot and ankle were exanguinated with an Esmarch bandage and tourniquet was then inflated to 250 mmHg. Attention was directed to the lateral aspect of the right calcaneus where within the safe zone away from neurovascular structures a linear incision was performed with a #15 blade with dissection carried down through subcutaneous tissue to the layer periosteum utilizing sharp and blunt technique. Care was taken to retract and preserve neurovascular and tendon structures. All bleeders were ligated and cauterized as necessary. An 8 mm bone harvesting tool was utilized provided by Miguel A Martinez on The 517 travel and 2 cc of bone was harvested and morselized form as autograft to be utilized at the arthrodesis site later in the procedure. The incision was irrigated with saline solution and subcutaneous tissue reapproximated with 4-0 Vicryl and skin with 4-0 nylon. Attention was directed to the right medial forefoot where over the previous cicatrix and incision was performed in a linear fashion with a #15 blade through skin with dissection carried down through subcutaneous tissue to the layer of hardware utilizing sharp and blunt technique. Care was taken to retract and preserve neurovascular and tendinous structures. All bleeders were ligated and cauterized as necessary. Hardware was removed this is a total of 5 screws and 1 plate without failure and once hardware is removed a nonunion was appreciated intraoperatively at the medial cuneiform first metatarsal arthrodesis site. All hardware was passed her operative field. Intraoperative C-arm confirmed no remaining hardware. Attention was directed at the nonunion which was incised with a #15 blade, there is mobility at the nonunion this was resected with a saw and bone resurfacing tool down to viable bone both at the distal aspect of the medial cuneiform and at the base of the first metatarsal right foot. Once poor quality bone was transected the incision was irrigated with saline solution. The base of the first metatarsal and medial cuneiform distal surface arthrodesis site was prepped with a fenestrating drill bit, calcaneal autograft was then introduced at arthrodesis site and the arthrodesis site was fixated utilizing standard AO technique with a homerun screw from dorsal distal to proximal plantar this was a [place] 4 mm partially-threaded cannulated screw with excellent bony apposition and compression noted with the first metatarsal held in anatomic position. Further fixation at the dorsal medial aspect with a primary Lapidus plate by Lyn[place]st with plantar arm with excellent bony apposition and compression noted. Intraoperative C-arm confirmed excellent placement of hardware not violating adjacent joints and anatomic alignment of the medial column of the right foot. The incision was then irrigated with saline solution and closed in a layered fashion periosteum was reapproximated with 3-0 Vicryl, subcutaneous tissue with 4-0 Vicryl and skin with 4-0 nylon. Incision was then dressed with Xeroform, sterile 4 x 4 gauze, Kerlix and a well-padded multilayer compressive posterior splint with stirrup with the foot and ankle in neutral position. Tourniquet was then deflated and a prompt hyperemic response is noted to the distal digits of the right foot. Patient tolerated the procedure and anesthesia well and was transferred to the PACU with vital signs stable and vascular status intact. Following a period of postoperative monitoring she will be discharged home was advised to be nonweightbearing, keep her dressings clean dry and intact until follow-up visit, advised a 81 mg aspirin to be taken once daily starting the morning after surgery on May 18, 2024 anticipating a 6-week course to help potentially reduce risk of deep vein thrombosis until the patient is ambulatory. Patient was given at home care instructions and scheduled follow-up as well as myself number to contact me with any postoperative questions or concerns.
--- NOTE | 2024-05-17 06:48 | W.PM.OPSUD ---
Surgery/Procedure H&P Update DATE OF PROCEDURE: May 17, 2024 DATE H&P PERFORMED: 05/06/24 H&P UPDATE INFORMATION: I have reviewed H&P completed within last 30 days, I have examined patient prior to procedure, No changes to prior documentation and H&P is in [facility] EMR on date indicated PREOP DIAGNOSIS: Nonunion right foot PLANNED PROCEDURE: Operation Date: 05/17/24 08:00 Proposed Procedures p Hardware Removal right foot(Right) - Curt Mares DPM s Bunionectomy Lapidus right foot(Right) - RANJIT Banda Calcaneal Autograft right foot(Right) - Curt Mares DPM
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
[2024-05-17] MEDS: ceFAZolin 2,000 mg SDV 2000 MG IVP (08:05)
[2024-05-17] MEDS: BUPivacaine 0.25% INJ 30 mL INJECTION (08:32)
[2024-05-17] MEDS: BUPivacaine liposome 13.3 mg/mL SDV 20 mL 266 MG INFILTRATI (08:32)
--- NOTE | 2024-05-17 09:17 | P.BOP_ITS ---
Date of Procedure: 06/30/23 Surgeon: Curt Mares DPM User Interface Designer(s): Tracy Procedure(s) performed: Calcaneal autograft, hardware removal and midfoot fusion all right foot Findings of the procedure(s): nonunion right midfoot Estimated blood loss: 2 mL Specimen(s) removed: No specimens Post-operative diagnosis: Painful right foot nonunion and painful hardware
[2024-05-17] MEDS: HYDROcodone-acetaminophen 10-325 mg Tablet 1 TAB PO (09:57)
--- NOTE | 2024-05-17 10:30 | ANE.PACU2 ---
Inpatient post-anesthesia follow up: Airway intact: Yes Vital signs: Temperature 97.8 F Pulse Rate 96 Respiratory Rate 18 Blood Pressure 146/86 Pulse Oximetry 97 Oxygen Delivery Me thod Room Air Oxygen Flow Rate Fraction of Inspir ed Oxygen Hydration adequate: Yes Nausea and vomiting: No Pain level: 1 Mental status: Baseline
== END 2024-05-17 10:30 | disposition home or self-care (01) ==
PROVIDERS: PCP Nurse Practitioner; Visit Provider Podiatrist Foot & Ankle Surgery
PROC: (CPT 20680; principal; 2024-05-17 08:00)
PROC: (CPT 28297; 2024-05-17 08:00)
PROC: (CPT 20680; 2024-05-17 08:00)
DX: M96.0 Pseudarthrosis after fusion or arthrodesis (principal); T84.84XA Pain due to internal orthopedic prosthetic devices, implants and grafts, initial encounter; M79.671 Pain in right foot; Z87.891 Personal history of nicotine dependence; Z79.899 Other long term (current) drug therapy
CPT/HCPCS: 20680; 28297; 20902; 73630; 76000; C1713; C9290; J0690; J1100; J2371; J2405; J2704; J3010; J3490; J7030

== ENCOUNTER → 2024-05-30 13:47 | Outpatient (BNVA) | payer OTHER, SELFPAY | PROVIDERS: PCP Nurse Practitioner; Visit Provider Podiatrist Foot & Ankle Surgery | DX: Z98.890 Other specified postprocedural states (principal) | CPT/HCPCS: 73630; 99024 ==

== ENCOUNTER → 2024-06-27 13:00 | Outpatient (BNVA) | payer OTHER, SELFPAY | PROVIDERS: PCP Nurse Practitioner; Visit Provider Podiatrist Foot & Ankle Surgery | DX: Z98.890 Other specified postprocedural states (principal) | CPT/HCPCS: 73630; 99024 ==

== ENCOUNTER → 2024-07-25 12:50 | Outpatient (BNVA) | payer OTHER, SELFPAY | PROVIDERS: PCP Nurse Practitioner; Visit Provider Podiatrist Foot & Ankle Surgery | DX: Z98.890 Other specified postprocedural states (principal) | CPT/HCPCS: 73630; 99024 ==

== ENCOUNTER 2024-08-01 14:59 | Outpatient (RCR) | payer OTHER, SELFPAY | END 2024-08-14 23:59 | disposition home or self-care (01) | LOC: SPT 14:59 | PROVIDERS: Visit Provider Podiatrist Foot & Ankle Surgery | DX: Z98.890 Other specified postprocedural states (principal) | CPT/HCPCS: 97110; 97161 ==

== ENCOUNTER 2024-08-15 05:00 | Outpatient (RCR) | payer OTHER, SELFPAY | END 2024-09-14 23:59 | disposition home or self-care (01) | LOC: SPT 05:00 | PROVIDERS: Visit Provider Podiatrist Foot & Ankle Surgery | DX: Z98.890 Other specified postprocedural states (principal) | CPT/HCPCS: 97110 ==

== ENCOUNTER 2024-10-15 06:30 | Outpatient (RCR) | payer OTHER, SELFPAY | END 2024-10-29 08:20 | disposition home or self-care (01) | LOC: SPT 06:30 | PROVIDERS: Visit Provider Podiatrist Foot & Ankle Surgery | DX: Z98.890 Other specified postprocedural states (principal) | CPT/HCPCS: 97110 ==

== ENCOUNTER 2024-12-15 13:54 | Emergency (ER) | payer OTHER, SELFPAY ==
--- OUTSIDE RECORDS SUMMARY | 2024-10-16 07:44 | XMS_ITS | Encounter Summary ---
Author Name [facility] [place] Organization [facility] [place] [place] Address [address] [place] [address] Care Team Providers Care Brusher Warp Name Role Phone CHAVO PERDOMO Primary Care Provider UnavailANUEL Jarquin Primary Care Provider Unavail able Insurance Providers: All historical and current Section Date Range: From patient's date of to the date document was created. This section includes the names of all active insurance providers for the patient. Insurance Provider Type of Coverage Plan Name Start of Policy Coverage End of Policy Coverage Group Number Member ID Insurance Provider's Telephone Number Policy Silva's Name Patient's Relationship to Policy Silva MEDICAID (WNR) MEDICAID MEDIC AID Apr 17, 2000 MEDICAI D [id number] Roland VALDES HERYL PATIENT MEDICAID (WNR) MEDICAID MEDIC AID Apr 17, 2000 MEDICAI D [id number] Roland VALDES HERYL PATIENT Selected Encounter This section includes the information on record at [place] for the Encounter. Date/Time Encounter Type Encounter Description Reason Pro vider Source Oct 16, 2024 12:44 PM Outpatient Encounter ADMIN PAT ACTIVTIES (MASNONCT) IHE Encounter Template Text not used by [place] Plan of Treatment: Future Appointments (+ 6 months) and Future Tests (+/- 45 days) The Plan of Treatment section includes future care activities for the patient from all [facility] treatmentfacilities. This section includes future appointments and future orders which are active, pending or scheduled. Future Appointments This section includes appointments that were scheduled to occur 6 months from the date of the Encounter, up to a maximum of 20 appointments. The data comes from all [facility]. Appointment Date/Time Appointment Type Appointme nt Facility Name Nov 01, 2024 03:00 PM AM[facility]UL[facility]ORY [facility] Nov 15, 2024 02:00 PM [facility] Nov 15, 2024 02:30 PM AM[facility]ULATORY - MEDICINE [facility] Dec 27, 2024 12:00 PM AMBULATORY - NONE [facility] [facility] Jan 02, 2025 03:30 PM AM[facility]ULATORY [facility] MEDICINE [facility] Jan 10, 2025 03:00 PM AMBULATORY - MEDICINE [facility] Jan 23, 2025 03:00 PM AM[facility]ULATORY - MEDICINE [facility] Feb 10, 2025 03:00 PM AMBULATORY - MEDICINE [facility] Feb 24, 2025 03:00 PM AMBULATORY - MEDICINE [facility] Mar 10, 2025 03:00 PM AMBULATORY - MEDICINE [facility] Mar 24, 2025 03:00 PM AMBULATORY - MEDICINE [facility] Apr 04, 2025 03:00 PM AMBULATORY - MEDICINE [facility] Active, Pending, and Scheduled Orders This section includes a listing of several types of active, pending, and scheduled orders, including clinic medications orders, diagnostic test orders, procedure orders and consult orders; where the start date of the order is 45 days before the date of the Encounter or 45 days after the date of theEncounter. The data comes from all [facility]. Test Date/Time Test Type Test Details Facility Name September 02, 2024 12:00 AM Laboratory - Chemi stry Order CHOLESTEROL PANEL (PB) GREEN LI/HEP BLD/PLAS PLASMA [facility] Oct 07, 2024 08:00 AM Laboratory - Chemi stry Order GLUCOSE GREEN LI/HEP BLD/PLAS PLASMA [facility] Oct 07, 2024 08:00 AM Laboratory - Chemi stry Order CHOLESTEROL PANEL (PB) GREEN LI/HEP BLD/PLAS PLASMA [facility] Oct 07, 2024 08:00 AM Laboratory - Chemi stry Order HGA1C BLOOD [facility] Lab Results: +/- 30 days of the encounter This section includes the Chemistry and Hematology Lab Results on record with [facility] for the patient. Radiology Reports and Pathology Reports are provided separately, in subsequent sections. Lab Results This section contains the Chemistry/Hematology Results that were resulted 30 days before or 30 daysafter the date of the Encounter. Date/Time Source Result Type Result - Unit Interpretation Reference Range Specimen Type Comment Nov 05, 2024 08:00 AM [facility] OCCULT BLOOD FIT X1 SCREEN FECES Specimen Typ e: FECES No comment entered. Ordering Provider: ANUEL SINGH Report Released Date/Time: Nov 21, 2024 09:03 AM Reporting Lab: [place] [facility] [address] [place] [address] Performing Lab: [place] [facility] [address] [place] [address] OCCULT BLOOD (FIT) #1 OF 1 Negative Encounter Notes: All associated encounter notes This section contains the clinical notes associated to the Encounter. Date/Time Encounter Note(s) Provider Source Oct 16, 2024 12:50 PM LETTERS: LOCAL TITLE: LCS LETTER PB STANDARD TITLE: LETTERS DATE OF NOTE: OCT 16, 2024@12:50 ENTRY DATE: OCT 16, 2024@12:50:37 AUTHOR: CHARLY PATINO EXP COSIGNER: URGENCY: STATUS: COMPLETED [facility] [address] [place] [address] [facility] [address] [place] [address] Oct Maral Valdes8 S [facility] [address] [address] Dear Tk Valdes: Unfortunately, you missed your lung cancer screening CT scan that was scheduled for 09/04/2024, and we've been unable to reach you for rescheduling. Lung cancer is treatable and patients do better if it is found early. Routine screenings are the best way to detect early stage lung cancer. Please contact your primary care provider, or call the Lung Cancer Screening (LCS) program at if you wish to reschedule your LDCT scan and continue participation in the LCS program. Thank you for service and have a great day! Sincerely, PETEY Mirza, RN LCS Program MARAL VALDES CHARLY PATINO [facility] Oct 16, 2024 12:44 PM PRIMARY CARE DIAGN OSTIC STUDY NOTE: LOCAL TITLE: LDCT FOLLOW-UP NOTE PB STANDARD TITLE: PRIMARY CARE DIAGNOSTIC STUDY NOTE DATE OF NOTE: OCT 16, 2024@12:44 ENTRY DATE: OCT 16, 2024@12:44:08 AUTHOR: CHARLY PATINO EXP COSIGNER: URGENCY: STATUS: COMPLETED Per notes, [place] was no-show for f/u LDCT scheduled for 09/04/2024, has not responded to rescheduling efforts, order discontinued per Radiology protocol. Attempted phone contact, no answer, left VM message regarding f/u LDCT scan due August 2024. Will f/u for response and send letter. Last LDCT 09/05/2023, LRADS 1. Smoking history: Former smoker, 1 ppd x 30 yrs, quit 05/18/2015. /jeremi/ PETEY Mirza, RN LCS Program Signed: 10/16/2024 12:50 CHARLY PATINO [facility]
--- OUTSIDE RECORDS SUMMARY | 2024-11-11 07:54 | XMS_ITS ---
Author Name [facility] [facility] [place] Organization [facility] [place] Address [address] [place] [address] Care Team Providers Care Fluid Pump Operator Name Role Phone CHAVO PERDOMO Primary Care [...] MEDIC AID Apr 17, 2000 MEDICAI D [id number] [id number] Roland MARIE HERYL PATIENT MEDICAID (WNR) MEDICAID MEDIC AID Apr 17, 2000 MEDICAI D [id number] Roland MARIE HERYL PATIENT Selected Encounter This section includes the information on record at [place] for the Encounter. Date/Time Encounter Type Encounter Description Reason Pro vider Source Nov 11, 2024 12:54 PM Outpatient Encounter ADMIN PAT ACTIVTIES (MASNONCT) IHE Encounter Template Text not used by [place] Plan of Treatment: Future Appointments (+ 6 [...] 20 appointments. The data comes from all [facility]. Appointment Date/Time Appointment Type Appointme nt Facility Name Nov 15, 2024 02:00 PM AMBULATORY - MEDICINE [facility] Nov 15, 2024 02:30 PM AMBULATORY - MEDICINE [facility] Dec 27, 2024 12:00 PM AMBULATORY - NONE [facility] [place] Jan 02, 2025 03:30 PM AMBULATORY - MEDICINE [facility] Jan 10, 2025 03:00 PM AMBULATORY MEDICINE [facility] Jan 23, 2025 03:00 PM AMBULATORY MEDICINE [facility] Feb 10, 2025 03:00 PM AMBULATORY MEDICINE [facility] Feb 24, 2025 03:00 PM AMBULATORY MEDICINE [facility] Mar 10, 2025 03:00 PM AMBULATORY MEDICINE [facility] Mar 24, 2025 03:00 PM AMBULATORY MEDICINE [facility] Apr 04, 2025 03:00 PM AMBULATORY - MEDICINE [facility] Active, Pending, and Scheduled Orders This section includes a listing of several types of active, pending, and scheduled orders, including clinic medications orders, diagnostic test orders, procedure orders and consult orders; where the start date of the order is 45 days before the date of the Encounter or 45 days after the date of theEncounter. The data comes from all [facility]. Test Date/Time Test Type Test Details Facility Name Oct 07, 2024 08:00 AM Laboratory - Chemi stry Order CHOLESTEROL PANEL (PB) GREEN LI/HEP BLD/PLAS [facility] Oct 07, 2024 08:00 AM Laboratory - Chemi stry Order GLUCOSE GREEN LI/HEP BLD/PLAS [facility]AS[facility] Oct 07, 2024 08:00 AM Laboratory - Chemi stry Order HGA1C BLOOD [facility] Dec 02, 2024 12:00 AM Imaging - CT Scan Order LDCT LUNG CANCER SCREENING [facility] Lab Results: +/- 30 days of the encounter This section includes the Chemistry and Hematology Lab Results on record with [place] for the patient. Radiology Reports and Pathology Reports are provided separately, in subsequent sections. Lab Results This section contains the Chemistry/Hematology Results that were resulted 30 days before or 30 daysafter the date of the Encounter. Date/Time Source Result Type Result - Unit Interpretation Reference Range Specimen Type Comment Nov 05, 2024 08:00 AM [facility] OCCULT BLOOD FIT X1 SCREEN FECES Specimen Typ e: FECES No comment entered. Ordering Provider: ANUEL SINGH Report Released Date/Time: Nov 21, 2024 09:03 AM Reporting Lab: [place] [facility] [address] [place] [address] Performing Lab: [place] [facility] [address] [place] [address] OCCULT BLOOD (FIT) #1 OF 1 Negative Encounter Notes: All associated encounter notes This section contains the clinical notes associated to the Encounter. Date/Time Encounter Note(s) Provider Source Nov 11, 2024 12:54 PM GENERAL MEDICINE N OTE: LOCAL TITLE: General Note PB STANDARD TITLE: GENERAL MEDICINE NOTE DATE OF NOTE: NOV 11, 2024@12:54 ENTRY DATE: NOV 11, 2024@12:54:46 AUTHOR: CHARLY PATINO EXP COSIGNER: URGENCY: STATUS: COMPLETED Phone contact to [place] regarding overdue annual f/u LDCT due August 2024. Verified by name/. [place] was no-show for f/u LDCT scheduled for 09/04/2024, last LDCT completed 09/05/2023, LRADS 1. reports would like to re- schedule LDCT, new order entered this date for annual f/u LDCT. /jeremi/ PETEY Mirza, RN LCS Program Signed: 11/11/2024 12:59 Receipt Acknowledged By: 11/11/2024 13:09 /jeremi/ Maral Duran APRN, [employer] ARTILLERY OFFICER-C, [facility] Yoni Medina [facility] for [facility] [place]
--- OUTSIDE RECORDS SUMMARY | 2024-12-15 09:00 | XMS_ITS | Continuity of Care Document ---
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 Performing Lab: [place] [facility] [address] [place] [address] [facility] URINALYSI S (STL-PB) BILIRUBIN.T OTAL [PRESENCE] IN URINE BY TEST STRIP NEGATIVE mg/dL 12/25 Specimen Type: URINE No comment entered. Ordering Provider: REBEKAH SINGH Report Released Date/Time: Dec 25, 2023 04:44 PM Reporting Lab: [place] [facility] [address] [place] [address] Performing Lab: [place] [facility] [address] [place] [address] [facility] [place] [facility] URINALYSI S (STL-PB) PH OF URINE BY TEST STRIP 7.5 5.0 - 8.0 12/25 Specimen Type: URINE No comment entered. Ordering Provider: REBEKAH SINGH Report Released Date/Time: Dec 25, 2023 04:44 PM Reporting Lab: [place] [facility] [address] [place] [address] [place] [address] Performing Lab: [place] [facility] [address] [place] [address] [place] [address] [facility] URINALYSI S (STL-PB) APPEARANCE OF URINE CLEAR 12/25 Specimen Type: URINE No comment entered. Ordering Provider: REBEKAH SINGH Report Released Date/Time: Dec 25, 2023 04:44 PM Reporting Lab: [place] [facility] [address] [place] [address] Performing Lab: [place] [facility] [address] [place] [address] [facility] URINALYSI S (STL-PB) NITRITE [PRESENCE] IN URINE BY TEST STRIP NEGATIVE mg/dL 12/25 Specimen Type: URINE No comment entered. Ordering Provider: REBEKAH SINGH Report Released Date/Time: Dec 25, 2023 04:44 PM Reporting Lab: [place] [facility] [address] [place] [address] Performing Lab: [place] [facility] [address] [place] [address] [facility] URINALYSI S (STL-PB) GLUCOSE [MASS/VOLUM E] IN URINE BY TEST STRIP NORMALmg /dL 12/25 Specimen Type: URINE No comment entered. Ordering Provider: REBEKAH SINGH Report Released Date/Time: Dec 25, 2023 04:44 PM Reporting Lab: [place] [facility] [address] [place] [address] Performing Lab: [place] [facility] [address] [place] [address] [place] [address] [facility] URINALYSI S (STL-PB) PROTEIN [MASS/VOLUM E] IN URINE BY TEST STRIP NEGATIVE mg/dL - 20 12/25 Specimen Type: URINE No comment entered. Ordering Provider: REBEKAH SINGH Report Released Date/Time: Dec 25, 2023 04:44 PM Reporting Lab: [place] [facility] [address] [place] [address] Performing Lab: [place] [facility] [address] [place] [address] [place] [facility] URINALYSI S (STL-PB) URN.UROBILI NOGEN NORMALmg /dL 12/25 Specimen Type: URINE No comment entered. Ordering Provider: REBEKAH SINGH Report Released Date/Time: Dec 25, 2023 04:44 PM Reporting Lab: [place] [facility] [address] [place] [address] Performing Lab: [place] [facility] [address] [place] [id number] [facility] URINALYSI S (STL-PB) HEMOGLOBIN [MASS/VOLUM E] IN URINE BY TEST STRIP NEGATIVE mg/dL 12/25 Specimen Type: URINE No comment entered. Ordering Provider: REBEKAH SINGH Report Released Date/Time: Dec 25, 2023 04:44 PM Reporting Lab: [place] [facility] [address] [place] [address] Performing Lab: [place] [facility] [address] [place] [address] [facility] URINALYSI S (STL-PB) KETONES [MASS/VOLUM E] IN URINE BY TEST STRIP NEGATIVE mg/dL 12/25 Specimen Type: URINE No comment entered. Ordering Provider: REBEKAH SINGH R Report Released Date/Time: Dec 25, 2023 04:44 PM Reporting Lab: [place] [facility] [address] [place] [address] Performing Lab: [place] [facility] [address] [place] [address] [facility] URINALYSI S (STL-PB) URN.LEUK.ES T. NEGATIVE 12/25 Specimen Type: URINE No comment entered. Ordering Provider: REBEKAH SINGH Report Released Date/Time: Dec 25, 2023 04:44 PM Reporting Lab: [place] [facility] [address] [place] [address] Performing Lab: [place] [facility] [address] [place] [address] [facility] URINALYSI S (STL-PB) SPECIFIC GRAVITY OF URINE 1.025 1.005 - 1.029 12/25 Specimen Type: URINE No comment entered. Ordering Provider: REBEKAH SINGH Report Released Date/Time: Dec 25, 2023 04:44 PM Reporting Lab: [place] [facility] [address] [place] [address] Performing Lab: [place] [facility] [address] [place] [address] [facility] COMPREHEN SIVE METABOLIC PANEL CREATININE [MASS/VOLUM E] IN SERUM OR PLASMA 1.41 mg/dL 0.6 - 1.1 03/20 H Specimen Type: PLASMA No comment entered. Ordering Provider: REBEKAH SINGH R Report Released Date/Time: Jan 10, 2023 10:26 AM Reporting Lab: [place] [facility] [address] [place] [address] Performing Lab: [place] [facility] [address] [place] [address] [facility] COMPREHEN SIVE METABOLIC PANEL UREA NITROGEN [MASS/VOLUM E] IN SERUM OR PLASMA 15 mg/dL 9 - 25 03/20 Specimen Type: PLASMA No comment entered. Ordering Provider: REBEKAH SINGH R Report Released Date/Time: Jan 10, 2023 10:26 AM Reporting Lab: [place] [facility] [address] [place] [address] Performing Lab: [place] [facility] [address] [place] [address] [facility] COMPREHEN SIVE METABOLIC PANEL GLUCOSE [MASS/VOLUM E] IN SERUM OR PLASMA 103 mg/dL 72 - 99 03/20 H Specimen Type: PLASMA No comment entered. Ordering Provider: REBEKAH SINGH Report Released Date/Time: Jan 10, 2023 10:26 AM Reporting Lab: [place] [facility] [address] [place] [address] Performing Lab: [place] [facility] [address] [place] [address] [facility] COMPREHEN SIVE METABOLIC PANEL SODIUM [MOLES/VOLU ME] IN SERUM OR PLASMA 143 meq/L 136 - 145 03/20 Specimen Type: PLASMA No comment entered. Ordering Provider: REBEKAH SINGH Report Released Date/Time: Jan 10, 2023 10:26 AM Reporting Lab: [place] [facility] [address] [place] [address] Performing Lab: [place] [facility] [address] [place] [address] [facility] COMPREHEN SIVE METABOLIC PANEL POTASSIUM [MOLES/VOLU ME] IN SERUM OR PLASMA 4.6 meq/L 3.5 - 5 03/20 Specimen Type: PLASMA No comment entered. Ordering Provider: REBEKAH SINGH Report Released Date/Time: Jan 10, 2023 10:26 AM Reporting Lab: [place] [facility] [address] [place] [address] Performing Lab: [place] [facility] [address] [place] [address] [facility] COMPREHEN SIVE METABOLIC PANEL CHLORIDE [MOLES/VOLU ME] IN SERUM OR PLASMA 107 meq/L 98 - 107 03/20 Specimen Type: PLASMA No comment entered. Ordering Provider: REBEKAH SINGH Report Released Date/Time: Jan 10, 2023 10:26 AM Reporting Lab: [place] [facility] [address] [place] [address] Performing Lab: [place] [facility] [address] [place] [address] [facility] COMPREHEN SIVE METABOLIC PANEL CARBON DIOXIDE, TOTAL [MOLES/VOLU ME] IN SERUM OR PLASMA 25 meq/L 22 - 31 03/20 Specimen Type: PLASMA No comment entered. Ordering Provider: SINGH,CAT HERINE R Report Released Date/Time: Jan 10, 2023 10:26 AM Reporting Lab: [place] [facility] [address] [place] [address] Performing Lab: [place] [facility] [address] [place] [address] [facility] COMPREHEN SIVE METABOLIC PANEL CALCIUM [MASS/VOLUM E] IN SERUM OR PLASMA 9.7 mg/dL 8.4 - 10.4 03/20 Specimen Type: PLASMA No comment entered. Ordering Provider: REBEKAH SINGH Report Released Date/Time: Jan 10, 2023 10:26 AM Reporting Lab: [place] [facility] [address] [place] [id number] Performing Lab: [place] [facility] [address] [place] [address] [facility] COMPREHEN SIVE METABOLIC PANEL PROTEIN [MASS/VOLUM E] IN SERUM OR PLASMA 7.1 g/dL 6 - 8.6 03/20 Specimen Type: PLASMA No comment entered. Ordering Provider: REBEKAH SINGH R Report Released Date/Time: Jan 10, 2023 10:26 AM Reporting Lab: [place] [facility] [address] [place] [id number] Performing Lab: [place] [facility] [address] [place] [address] [facility] COMPREHEN SIVE METABOLIC PANEL ALBUMIN [MASS/VOLUM E] IN SERUM OR PLASMA 4.4 g/dL 3.4 - 5 03/20 Specimen Type: PLASMA No comment entered. Ordering Provider: REBEKAH SINGH R Report Released Date/Time: Jan 10, 2023 10:26 AM Reporting Lab: [place] [facility] [address] [place] [address] Performing Lab: [place] [facility] [address] [place] [address] [facility] COMPREHEN SIVE METABOLIC PANEL BILIRUBIN.T OTAL [MASS/VOLUM E] IN SERUM OR PLASMA 0.3 mg/dL 0.2 - 1.2 03/20 Specimen Type: PLASMA No comment entered. Ordering Provider: REBEKAH SINGH R Report Released Date/Time: Jan 10, 2023 10:26 AM Reporting Lab: [place] [facility] [address] [place] [address] Performing Lab: [place] [facility] [address] [place] [address] [facility] COMPREHEN SIVE METABOLIC PANEL ALKALINE PHOSPHATASE [ENZYMATIC ACTIVITY/VO LUME] IN SERUM OR PLASMA 73 U/L 40 - 150 03/20 Specimen Type: PLASMA No comment entered. Ordering Provider: REBEKAH SINGH R Report Released Date/Time: Jan 10, 2023 10:26 AM Reporting Lab: [place] [facility] [address] [place] [address] Performing Lab: [place] [facility] [address] [place] [address] [facility] COMPREHEN SIVE METABOLIC PANEL ASPARTATE AMINOTRANSF ERASE [ENZYMATIC ACTIVITY/VO LUME] IN SERUM OR PLASMA 22 U/L 5 - 34 03/20 Specimen Type: PLASMA No comment entered. Ordering Provider: REBEKAH SINGH R Report Released Date/Time: Jan 10, 2023 10:26 AM Reporting Lab: [place] [facility] [address] [place] [address] Performing Lab: [place] [facility] [address] [place] [address] [facility] COMPREHEN SIVE METABOLIC PANEL ALANINE AMINOTRANSF ERASE [ENZYMATIC ACTIVITY/VO LUME] IN SERUM OR PLASMA 15 U/L 8 - 40 03/20 Specimen Type: PLASMA No comment entered. Ordering Provider: REBEKAH SINGH R Report Released Date/Time: Jan 10, 2023 10:26 AM Reporting Lab: [place] [facility] [address] [place] [address] Performing Lab: [place] [facility] [address] [place] [address] [facility] COMPREHEN SIVE METABOLIC PANEL GLOMERULAR FILTRATION RATE/1.73 SQ M.PREDICTED [VOLUME RATE/AREA] IN SERUM, PLASMA OR BLOOD BY CREATININE- BASED FORMULA (CKD-EPI 2020) 42 03/20 Specimen Type: PLASMA No comment entered. Ordering Provider: REBEKAH SINGH Report Released Date/Time: Jan 10, 2023 10:26 AM Reporting Lab: [place] [facility] [address] [place] [address] Performing Lab: [place] [facility] [address] [place] [address] [facility] OCCULT BLOOD FIT X1 SCREEN HEMOGLOBIN. GASTROINTES TINAL.LOWER [PRESENCE] IN STOOL BY IMMUNOASSAY Negative 01/16 Specimen Type: FECES No comment entered. Ordering Provider: REBEKAH SINGH Report Released Date/Time: Dec 26, 2022 02:32 PM Reporting Lab: [place] [facility] [address] [place] [address] Performing Lab: [place] [facility] [address] [place] [address] [facility] Vital Signs Combined list of inpatient and outpatient Vital Signs from Department of Defense and Veterans Affairs, ranging from 12 months to all on record, depending upon the facility. Vital Sign Value Date Comments Source SYSTOLIC BLOOD PRESSURE 112 11/15/2024 15:59:00 [facility] DIASTOLIC BLOOD PRESSURE 73 11/15/2024 15:59:00 [facility] TEMPERATURE 98 11/15/2024 15:59:00 [facility] PULSE 66 11/15/2024 15:59:00 [facility] SYSTOLIC BLOOD PRESSURE 133 10/04/2024 16:01:05 [facility] DIASTOLIC BLOOD PRESSURE 73 10/04/2024 16:01:05 [facility] PULSE OXIMETRY 97 % 10/04/2024 16:01:05 [facility] WEIGHT 130.5 10/04/2024 16:01:05 [facility] BMI 22 kg/m2 10/04/2024 16:01:05 [facility] PAIN 0 10/04/2024 16:01:05 [facility] TEMPERATURE 97.6 10/04/2024 16:01:05 [facility] PULSE 67 10/04/2024 16:01:05 [place] [facility] RESPIRATION 20 10/04/2024 16:01:05 [place] [facility] SYSTOLIC BLOOD PRESSURE 126 06/27/2024 10:00:00 [place] [facility] DIASTOLIC BLOOD PRESSURE 75 06/27/2024 10:00:00 [place] [facility] PULSE OXIMETRY 96 06/27/2024 10:00:00 [facility] [place] [facility] WEIGHT 122.3 06/27/2024 10:00:00 [place] [facility] BMI 21 kg/m2 06/27/2024 10:00:00 [place] [facility] PAIN 3 06/27/2024 10:00:00 [place] [facility] TEMPERATURE 97.6 06/27/2024 10:00:00 [place] [facility] PULSE 73 06/27/2024 10:00:00 [place] [facility] RESPIRATION 18 06/27/2024 10:00:00 [place] [facility] SYSTOLIC BLOOD PRESSURE 129 01/22/2024 14:57:00 [place] [facility] DIASTOLIC BLOOD PRESSURE 80 01/22/2024 14:57:00 [place] [facility] PULSE OXIMETRY 100 01/22/2024 14:57:00 [facility] [place] [facility] WEIGHT 118.7 01/22/2024 14:57:00 [place] [facility] BMI 20 kg/m2 01/22/2024 14:57:00 [place] [facility] PAIN 0 01/22/2024 14:57:00 [place] [facility] HEIGHT 64.0 01/22/2024 14:57:00 [place] [facility] PULSE 85 01/22/2024 14:57:00 [place] [facility] RESPIRATION 18 01/22/2024 14:57:00 [place] [facility] SYSTOLIC BLOOD PRESSURE 129 12/26/2023 15:27:00 [place] [facility] DIASTOLIC BLOOD PRESSURE 75 12/26/2023 15:27:00 [place] [facility] PULSE OXIMETRY 97 12/26/2023 15:27:00 [facility] [place] [facility] WEIGHT 116.3 12/26/2023 15:27:00 [facility] BMI 18 kg/m2 12/26/2023 15:27:00 [facility] PAIN 0 12/26/2023 15:27:00 [facility] HEIGHT 67.0 12/26/2023 15:27:00 [facility] PULSE 64 12/26/2023 15:27:00 [facility] RESPIRATION 18 12/26/2023 15:27:00 [facility] Encounters Combined list of: 1) Encounters from [facility] facilities going backup to the last 18 months, not all [facility] inpatient encounters are included; 2) Encounters from the Department of Defense facilities going backup to 280 months. Location Location Details Encounter Type Encounter Number Reason For Visit Attending Provider ADM Date DC Date Status Disposition Source [facility] OFFICE O/P EST LOW 20 MIN [id number] Diagnos is: ICD-10- CM F32.A Depress ion, unspeci fied RIKKI SINGHINE R 06/22 [facility] Outpatient Encounter [id number] 06/28 [facility] Outpatient Encounter [id number] 07/05 [facility] OFF/OP EST MAY X REQ PHY/QHP [id number] Diagnos is: ICD-10- CM K21.9 Gastro- esophag eal reflux disease without esophag itis Elan [place]AM 07/13 [facility] OFFICE O/P EST LOW 20 MIN [id number] Diagnos is: ICD-10- CM K21.9 Gastro- esophag eal reflux disease without esophag itis FREDY HAY 07/13 [facility] PSYCH DIAGNOSTIC EVALUATION [id number] Diagnos is: ICD-10- CM F32.A Depress ion, unspeci fibenton SIMPSON,CHUNG ISSOM J 07/17 [facility] OFF/OP EST MAY X REQ PHY/QHP [id number] Diagnos is: ICD-10- CM K64.9 Unspeci fied hemorrh Elan Pedro 07/17 [facility] OFFICE O/P EST LOW 20 MIN [id number] Diagnos is: ICD-10- CM K64.9 Unspeci fied hemorrh FREDY Portillo 07/17 [facility] Outpatient Encounter [id number] 07/20 [facility] Outpatient Encounter [id number] [facility]23 [facility] Encounter [id number] 07/23 [facility] Outpatient Encounter [id number] TATIANA,CHR ISSOM J 07/24 [facility] Outpatient Encounter [id number] 07/27 [facility] Outpatient Encounter [id number] 07/27 [facility] Outpatient Encounter [id number] 07/30 [facility] OFFICE O/P EST LOW 20 MIN [id number] Diagnos is: ICD-10- CM F32.A Depress ion, unspeci fied RIKKI SINGHINE [place] 08/09 [facility] PSYTX W PT 60 MINUTES [id number] Diagnos is: ICD-10- CM F32.A Depress ion, unspeci fied [place],[facility] ISSOM J 08/16 [facility] Outpatient Encounter [id number] 09/04 [facility] Outpatient Encounter [id number] GABRIEL PATINO [place] 09/05 [facility] Outpatient Encounter [id number] 09/05 [facility] [facility] PSYTX W PT 60 MINUTES [id number] Diagnos is: ICD-10- CM F32.A Depress ion, unspeci fied [place],[facility] ISSOM J 09/17 [facility] OFFICE O/P EST LOW 20 MIN [id number] Diagnos is: ICD-10- CM F32.A Depress ion, unspeci RIKKI Malin THERINE R 09/18 [facility] OFF/OP EST AUGUST X REQ PHY/QHP [id number] Diagnos is: ICD-10- CM B02.9 Zoster without complic ations HO,AN LUCITA D 09/24 [facility] PSYTX W PT 60 MINUTES [id number] [id number] Diagnos is: ICD-10- CM F32.A Depress ion, unspeci fied [place],[facility] ISSOM J 10/01 [facility] OFFICE O/P EST LOW 20 MIN [id number] Diagnos is: ICD-10- CM F32.A Depress ion, unspeci RIKKI Malin THERINE R 10/08 [facility] PSYTX W PT 60 MINUTES [id number] Diagnos is: ICD-10- CM F32.A Depress ion, unspeci fied [place],[facility] ISSOM J 10/15 [facility] Outpatient Encounter [id number] 10/25 [facility] Outpatient Encounter [id number] 11/01 [facility] PSYTX W PT 60 MINUTES [id number] Diagnos is: ICD-10- CM F32.A Depress ion, unspeci fied [place],[facility] ISSOM J 11/06 [facility] OFFICE O/P EST LOW 20 MIN [id number] Diagnos is: ICD-10- CM F32.A Depress ion, unspeci fied SINGH,CA THERINE R 11/06 [facility] Outpatient Encounter [id number] 11/13 [facility] PSYTX W PT 60 MINUTES [id number] Diagnos is: ICD-10- CM F32.A Depress ion, unspeci fied [place],[facility] ISS[facility] J 11/29 [place] [facility] Outpatient Encounter [id number] CHAIM TORRES 12/12 [facility] OFF/OP EST AUGUST X REQ PHY/QHP [id number] Diagnos is: ICD-10- CM J45.901 Unspeci fied asthma with (acute) exacerb ation CUSTRED,TO RRI J 12/12 [facility] PSYTX W PT 45 MINUTES [id number] [id number] Diagnos is: ICD-10- CM F32.A Depress ion, unspeci fied [place],[facility] ISSOM J 12/14 [facility] Outpatient Encounter [id number] RIKKI SINGH R 12/25 [facility] Outpatient Encounter [id number] Diagnos is: ICD-10- CM Z00.00 Encntr for general adult medical exam w/o abnorma l finding s RIKKI SINGHINE R 12/25 [facility] PSYTX W PT 60 MINUTES [id number] Diagnos is: ICD-10- CM F32.A Depress ion, unspeci fied [place],[facility] ISSOM J 12/26 [facility] Outpatient Encounter [id number] 01/01 [facility] OFFICE O/P EST SF 10 MIN [id number] [id number] Diagnos is: ICD-10- CM G50.1 Atypica l facial pain ESTELA,CLARA OGLESBY M 01/02 [facility] PSYTX W PT 45 MINUTES [id number] [id number] Diagnos is: ICD-10- CM F32.A Depress ion, unspeci fied [place],[facility] ISSOM J 01/09 [facility] Outpatient Encounter [id number] 01/09 [facility] COMPRE OPH EXAM NEW PT 1/> [id number] [id number] Diagnos is: ICD-10- CM H25.13 Age-rel ated nuclear catarac t, bilater al KOFI BANDA LA S 01/17 [facility] OFFICE O/P EST LOW 20 MIN [id number] Diagnos is: ICD-10- CM K21.9 Gastro- esophag eal reflux disease without esophag itis RIKKI SINGH THERINE R 01/21 [facility] Outpatient Encounter [id number] 02/15 [facility] Outpatient Encounter [id number] 02/28 [facility] Outpatient Encounter [id number] [id number] 03/08 [facility] Outpatient Encounter [id number] [id number] 03/12 [facility] Outpatient Encounter [id number] 03/22 [facility] PSYTX W PT 60 MINUTES [id number] [id number] Diagnos is: ICD-10- CM F32.A Depress ion, unspeci fied TATIANA,CHR ISSOM J 03/28 [facility] Outpatient Encounter [id number] Diagnos is: ICD-10- CM F32.A Depress ion, unspeci fied RIKKI SINGH THERINE R 04/04 [facility] Outpatient Encounter [id number] [id number] BISHOP DWYER 05/09 [facility] Outpatient Encounter [id number] [id number] 05/17 [facility] Outpatient Encounter [id number] [id number] Elan BIRMINGHAMVINNY CLARK 05/22 [facility] N [facility] Outpatient Encounter [id number] 05/22 [facility] N [facility] Outpatient Encounter [id number] 05/28 [facility] PSYTX W PT 60 MINUTES [id number] [id number] Diagnos is: ICD-10- CM F32.A Depress ion, unspeci fied [place]IANA,[facility] ISSOM J 05/31 [facility] SYNCH AUDIO-ONLY EST LOW 20 [id number] Diagnos is: ICD-10- CM F32.A Depress ion, unspeci fied RIKKI SINGH THERINE R 06/05 [facility] Outpatient Encounter [id number] 06/14 [facility] PSYTX W PT 60 MINUTES [id number] [id number] Diagnos is: ICD-10- CM F32.A Depress ion, unspeci fied [place]IANA,[facility] ISSOM J 06/17 [facility] Outpatient Encounter [id number] DAVID RIVAS 06/24 [facility] OFFICE O/P NEW MOD 45 MIN [id number] [id number] Diagnos is: ICD-10- CM F41.9 Anxiety disorde r, unspeci fied ADELA LIPSCOMB 06/27 [facility] Outpatient Encounter [id number] 06/28 [facility] N [facility] Outpatient Encounter [id number] 07/22 [facility] Outpatient Encounter [id number] [id number] 07/30 [facility] PSYTX W PT 60 MINUTES [id number] [id number] Diagnos is: ICD-10- CM F32.A Depress ion, unspeci fied TATIANA,CHR ISSOM J 08/09 [facility] Outpatient Encounter [id number] 08/23 [facility] Outpatient Encounter [id number] [id number] 08/26 [facility] Outpatient Encounter [id number] [id number] DAVID RIVAS 08/30 [facility] OFFICE O/P EST MOD 30 MIN [id number] Diagnos is: ICD-10- CM F33.42 Major depress corazon disorde r, recurre nt, in full remissi on ADELA LIPSCOMB 09/02 [facility] Outpatient Encounter [id number] 09/17 [facility] Outpatient Encounter [id number] [id number] Toño LUU 09/25 [facility] OFFICE O/P EST MOD 30 MIN [id number] Diagnos is: ICD-10- CM F33.42 Major depress corazon disorde r, recurre nt, in full remissi on ADELA LIPSCOMB 10/04 [facility] En[facility] [id number] 10/08 [facility] Outpatient Encounter [id number] [id number] Toño LUU 10/16 [facility] Outpatient Encounter [id number] [id number] 10/16 [place] [facility] Outpatient Encounter [id number] [id number] 10/28 [facility] PSYTX W PT 30 MINUTES [id number] Diagnos is: ICD-10- CM F32.A Depress ion, unspeci fied TATIANA,CHR ISSOM J 11/01 [facility] Outpatient Encounter [id number] 11/11 [place] OFF/OP EST MAY X REQ PHY/QHP [id number] Diagnos is: ICD-10- CM K64.9 Unspeci fied hemorrh oids CUSTRED,TO RRI J 11/15 [facility]P EST MOD 30 MIN [id number] Diagnos is: ICD-10- CM K64.9 Unspeci fied hemorrh oids FREDY HAY 11/15 [facility] Social History Combined list of available smoking, tobacco, and other social history from Department of Defense and Veterans Affairs facilities. Social History Type Response Date Comment Sourc e Tobacco smoking status NHIS VA-TOBACCO QUIT 15 YRS OR MORE 12/26/2023 [facility] History of tobacco use VA-TOBACCO FORMER USER 12/26/2023 [facility] History of tobacco use VA-TOBACCO FORMER USER 12/26/2022 [facility] History of tobacco use VA-TOBACCO FORMER USER 07/15/[address] History of tobacco use VA-TOBACCO FORMER USER 04/29/2021 [facility] Plan of Care List of future care activities from Department of Veterans Affairs facilities. Additional future care activities may be listed in the Assessment and Plan section. Date/Time Care Activity Care Activity Detail Blanca sauer 12/27/2024 AMBULATORY - NONE AMBULATORY - NONE BALTA SUAREZ [facility]
[2024-12-15 13:58] VITALS: BP 137/77; PULSE 82; RESP 14; TEMP 36.7; O2SAT 98; BMI 23.8
--- OUTSIDE RECORDS SUMMARY | 2024-12-15 14:02 | XMS_ITS | Patient Health Record ---
Author Organization [facility] Address [address] [place], [place] [address] Support Name Relationship Address Phone JERARDO MARIE Guarantor Unknown [phone] Reason For Referral No Information Plan Of Treatment Pending Test Test Name Order Date X-Ray SHOULDER MIN 2 VIEWS 10/17/2016 Insurance Providers Payer Name Payer Address Payer Phone Subscriber Number Group Number Insured Name Patient Relationship to Insured Coverage Start Date Coverage End Date [facility] [address] [place] [address] [id number] JERARDO MARIE Self - patient is the insured 7 Medications Administered Medication Instructions Date of Administration Dosage Notes DNU ketorolac tromethamine 6 0mg/ml 6611-7737-06 10/17/2016 60 mg
--- NOTE | 2024-12-15 14:31 | W.ED.SKABFB ---
HPI - Skin/Abscess/Foreign Bdy General: Chief complaint: Skin/Abscess/Foreign Body Stated complaint: allergic reaction to meds on bottom,oozing, bumps Time Seen by Provider: 12/15/24 14:02 History of Present Illness: 61-year-old female presents emergency room she has irritation of threctal area and gluteal fold. She has hemorrhoids have been inflamed lately she used topical prescription antihemorrhoid creams also using Tucks in the gluteal fold is gotten very irritated and inflamed extremely tender. Difficult her for her to even clean up after bowel movement because of the discomfort. Started a couple weeks ago and has persisted no large amounts of bleeding Associated symptoms: Deny chills or fever(s) Related Data Home Medications ?Medication ?Instructions ?Recorded ?Confirmed albuterol sulfate 90 mcg/actuation 2 puff inhalation Q6H PRN 01/25/23 07/25/24 aerosol inhaler (ProAir HFA) Shortness Of Breath losartan 25 mg tablet 25 mg PO QPM 01/25/23 07/25/24 trazodone 50 mg tablet 50 mg PO QPM 01/25/23 07/25/24 escitalopram oxalate 10 mg tablet 10 mg PO QPM 02/20/24 07/25/24 albuterol sulfate 2.5 mg/3 mL 2.5 mg inhalation Q6H PRN 02/27/24 07/25/24 (0.083 %) solution for nebulization Shortness Of Breath Or Wheezing Previous Rx's ?Medication ?Instructions ?Recorded custom molded arch supports #1 ea 01/25/23 Bone stimulator to right foot #1 ea 10/26/23 omeprazole 40 mg capsule,delayed 40 mg PO BID 1 month #60 caps 03/20/24 release cefdinir 300 mg capsule 300 mg PO BID 7 days #14 caps 05/17/24 hydrocodone 10 mg-acetaminophen 1 tab PO Q6H PRN pain 7 days #28 05/17/24 325 mg tablet tabs emollient combination no.97 1 ea topical Q2H PRN pain #454 12/15/24 (Aquaphilic topical ointment) grams hydrocortisone 1 % topical cream 1 applic topical BID #453.6 grams 12/15/24 lidocaine HCl 4 % topical cream 1 applic topical QID PRN pain #120 12/15/24 grams Allergies Allergy/AdvReac Type Severity Reaction Status Date / Time No Known Allergies Allergy Verified 12/15/24 13:58 Review of Systems Const: Denies: fever(s) or chills Skin/Breast: Reports: rash, pruritus, erythema, skin pain and skin tenderness PFSH ED PFSH: Family History Mother Hypertension Social History Smoking and tobacco/nicotine status: former use of tobacco/nicotine Alcohol intake: former Substance/Drug Use: former Physical Exam Const: COMMON NORMALS: no acute distress GENERAL APPEARANCE: cooperative and comfortable ORIENTATION/CONSCIOUSNESS: Yes awake, Yes oriented to person, Yes oriented to place and Yes oriented to time HENMT: COMMON NORMALS: normocephalic, atraumatic and hearing grossly normal bilaterally HEAD & SCALP: normocephalic and atraumatic Resp: COMMON NORMALS: normal respiratory effort, No retractions and No use of accessory muscles Back/Pelvis: OTHER: Contact dermatitis extending from the rectal area out into the gluteal fold. No vesicles no skin induration topical inflammation only. Neuro: SENSORIUM/ORIENTATION: Yes oriented to person, Yes oriented to place and Yes oriented to time Course Vital Signs: Vital signs: Vital Signs Temperature 98.0 F 12/15/24 13:58 Pulse Rate 82 12/15/24 13:58 Respiratory Rate 14 12/15/24 13:58 Blood Pressure 137/77 12/15/24 13:58 Pulse Oximetry 98 12/15/24 13:58 Oxygen Delivery Me thod Room Air 12/15/24 13:58 MDM - Skin/Abscess/Foreign Bdy Medicial Decision Making Stop the talk stop the over the prescription antihemorrhoid cream. Will have her apply lidocaine to the area as well as 1% hydrocortisone as an emollient such as Aquaphilic or Desitin for protection can use sitz bath follow-up with primary care. Recommend have her primary care refer her for definitive care for hemorrhoids to surgery No radiology studies performed this visit Discharge Plan Discharge Patient Disposition: Home Clinical Impression: Contact dermatitis Qualifiers: Contact dermatitis type: irritant Contact dermatitis trigger: drugs in contact with skin Qualified Code(s): L24.4 - Irritant contact dermatitis due to drugs in contact with skin Hemorrhoids Qualifiers: Hemorrhoid type: second degree Qualified Code(s): K64.1 - Second degree hemorrhoids Condition: Stable Prescriptions: New Aquaphilic Ointment 1 ea topical Q2H PRN (Reason: pain) Qty: 454 0RF hydrocortisone 1 % cream 1 applic topical BID Qty: 453.6 0RF lidocaine HCl 4 % cream 1 applic topical QID PRN (Reason: pain) Qty: 120 0RF No Action albuterol sulfate [ProAir HFA] 90 mcg/actuation HFA aerosol inhaler 2 puff inhalation Q6H PRN (Reason: Shortness Of Breath) losartan 25 mg tablet 25 mg PO QPM trazodone 50 mg tablet 50 mg PO QPM (DME) custom molded arch supports See Rx Instructions .Route .MEDSUPPLY Qty: 1 0RF Rx Instructions: As directed to be made by the hardeep [place]ente ([facility]) Bone stimulator to right foot See Rx Instructions .Route .MEDSUPPLY Qty: 1 0RF Rx Instructions: As directed by [place] escitalopram oxalate 10 mg tablet 10 mg PO QPM omeprazole 40 mg capsule,delayed release(DR/EC) 40 mg PO BID 30 Days Qty: 60 4RF hydrocodone-acetaminophen 10-325 mg tablet 1 tab PO Q6H PRN (Reason: pain) 7 Days Qty: 28 0RF cefdinir 300 mg capsule 300 mg PO BID 7 Days Qty: 14 0RF albuterol sulfate 2.5 mg /3 mL (0.083 %) solution for nebulization 2.5 mg inhalation Q6H PRN (Reason: Shortness Of Breath Or Wheezing) Discharge Orders: Discharge ED (Routine); Ordered 12/15/24 Ordered By: Kale Aguilar Referrals: Amber James FNP [Primary Care Provider, Nurse Practitioner] Discharge Diet: Usual diet Discharge Activity: Increase activity as tolerated Patient Instructions: Opioid Safety, Pain Management, Patient Portal & Pretty Instructions Activity Restrictions/Additional Instructions: Thank you for choosing [facility] for your healthcare needs today. It is very important that you follow up as instructed or that you return to the Emergency Department should you have concerns or if your condition changes or worsens in any way. Emergency department visits are focused on emergent conditions, in some cases you may require further evaluation on an outpatient basis. You were seen in the emergency room with complaints of pain in the perirectal area. Stop the topical cream you are given and stop using the Tucks pads. Apply lidocaine and steroid cream 4 times a day for relief of symptoms in addition to this apply either Desitin anlm-kxs-hwyvacb or Aquaphilic liberally to coat and protect the skin. Finally recommend you sit in a bathtub of plain warm water 3-4 times a day for at least 20 minutes at a time until it is healed. Recommend you follow-up with your primary care doctor for referral to general surgery for definitive treatment for the hemorrhoids. (Please note that included in your discharge packet is information concerning opioid safety and pain management. This information is given to all patients were discharged from the ER regardless of their discharge diagnosis or the medicines they usually take or are prescribed.) Print Language: Finnish Coding Level of Care Code ED [employer] for John Sheridan
== END 2024-12-15 15:00 | disposition home or self-care (01) ==
PROVIDERS: Emergency Provider Family Medicine; PCP Nurse Practitioner
DX: L24.4 Irritant contact dermatitis due to drugs in contact with skin (principal); K64.1 Second degree hemorrhoids; Z87.891 Personal history of nicotine dependence
CPT/HCPCS: 99283

== ENCOUNTER → 2025-01-07 15:01 | Outpatient (BNVA) | payer OTHER, SELFPAY | PROVIDERS: PCP Nurse Practitioner; Visit Provider Surgery | DX: K64.9 Unspecified hemorrhoids (principal); R03.0 Elevated blood-pressure reading, without diagnosis of hypertension | CPT/HCPCS: 99214 ==

== ENCOUNTER 2025-01-17 13:53 | Outpatient (CLI) | payer OTHER, SELFPAY ==
--- NOTE | 2025-01-17 13:58 | MM_ITS ---
WS: [id number] BILATERAL 3D TOMOSYNTHESIS DIGITAL SCREENING MAMMOGRAPHY WITH CAD CLINICAL INFORMATION: SCREENING HISTORY: Screening mammogram. No current complaints. COMPARISON: 2022 TECHNIQUE: Bilateral CC and MLO views. FINDINGS: The breasts are composed of heterogeneous fibroglandular density tissue, which can limit the detection of small underlying mass lesions. Increasing asymmetric density RIGHT breast near the 12 o'clock position. Recommend further evaluation with RIGHT breast diagnostic mammography and ultrasound if persistent. Unremarkable LEFT breast. MM/MM [facility] tomosynthesis [id number] IMPRESSION: DENSITY: The breasts are heterogeneously dense, which may obscure small masses. BI-RADS: 0 - Incomplete: Need additional imaging evaluation FOLLOW UP: Need Additional Imaging Recommend RIGHT breast diagnostic mammography and ultrasound if persistent.
== END 2025-01-17 13:54 | disposition home or self-care (01) ==
LOC: RAD 13:54
PROVIDERS: PCP Nurse Practitioner; Visit Provider Nurse Practitioner
DX: Z12.31 Encounter for screening mammogram for malignant neoplasm of breast (principal); R92.323 Mammographic fibroglandular density, bilateral breasts; R92.333 Mammographic heterogeneous density, bilateral breasts; N64.89 Other specified disorders of breast
CPT/HCPCS: 77063; 77067

== ENCOUNTER 2025-02-03 05:45 | Day surgery (SDC) | payer OTHER, SELFPAY ==
--- NOTE | 2025-02-02 16:55 | ANES.PREANE2 ---
Pre-Anesthetic Assessment Height/Weight: Height 5 ft 2 in Preop Diagnosis: Hemorrhoids Operation Date: 02/03/25 07:10 Proposed Procedures p Rectal Exam Under Anesthesia(Not Applicable) - Zuhair Barahona MD s POSSIBLE Hemorrhoidectomy(Not Applicable) - Zuhair Barahona MD Was Beta Nancy taken within 24 hours: N/A Was Clonidine taken within 24 hours: N/A Social No alcohol and No tobacco Quit smoking 5 years ago Exam alert, oriented x 3, clear to auscultation bilaterally and regular rate & rhythm Airway Submandibular: Other (Very limited mouth opening) Cervical ROM: within normal limits Mallampati: Class IV Dentition: full Anesthetic Plan ASA status: 3 Anesthesia: General Other: No prior issues with anesthesia NPO since yesterday evening History of hypertension on losartan GERD, controlled with omeprazole Prior EKG showing sinus rhythm with short WV interval METs greater than 4 Plan for general anesthesia with video laryngoscopy due to small mouth opening Medications/Allergies Home Medications ?Medication ?Instructions ?Recorded ?Confirmed ?Last Taken ?Type albuterol sulfate 90 mcg/actuation 2 puff inhalation Q6H PRN 01/25/23 02/03/25 2 Months Ago History aerosol inhaler (ProAir HFA) Shortness Of Breath ~12/30/23 custom molded arch supports #1 ea 01/25/23 01/07/25 Unknown Rx losartan 25 mg tablet 25 mg PO QPM 01/25/23 02/03/25 05/16/24 History trazodone 50 mg tablet 100 mg PO QPM 01/25/23 02/03/25 02/02/25 History Bone stimulator to right foot #1 ea 10/26/23 01/07/25 Unknown Rx escitalopram oxalate 10 mg tablet 20 mg PO QPM 02/20/24 02/03/25 02/02/25 History albuterol sulfate 2.5 mg/3 mL 2.5 mg inhalation Q6H PRN 02/27/24 02/03/25 Unknown History (0.083 %) solution for nebulization Shortness Of Breath Or Wheezing omeprazole 40 mg capsule,delayed 40 mg PO BID 1 month #60 caps 03/20/24 02/03/25 02/03/25 Rx release emollient combination no.97 1 ea topical Q2H PRN pain #454 12/15/24 01/07/25 Unknown Rx (Aquaphilic topical ointment) grams hydrocortisone 1 % topical cream 1 applic topical BID #453.6 grams 12/15/24 02/03/25 Unknown Rx aripiprazole 5 mg tablet 5 mg PO DAILY 01/07/25 02/03/25 02/02/25 History hydrocortisone 2.5 % topical cream 1 applic WV QID PRN Itching 01/07/25 02/03/25 Unknown History with perineal applicator (Anusol-HC) rosuvastatin 10 mg PO DAILY 01/30/25 02/03/25 02/02/25 History Allergies Allergy/AdvReac Type Severity Reaction Status Date / Time No Known Allergies Allergy Verified 02/03/25 06:03 PFSH Anesthesia Family History Mother Hypertension Social History Smoking and tobacco/nicotine status: former use of tobacco/nicotine Alcohol intake: former Substance/Drug Use: former
[2025-02-03] VITALS (11 sets, daily range): BP systolic 87–133; BP diastolic 51–90; PULSE 61–86; RESP 11–20; TEMP 36.1–36.6; O2SAT 95–98; BMI 25.2
--- NOTE | 2025-02-03 05:50 | W.PM.OPSUD ---
Surgery/Procedure H&P Update DATE OF PROCEDURE: February 03, 2025 DATE H&P PERFORMED: 01/07/25 H&P UPDATE INFORMATION: I have reviewed H&P completed within last 30 days, I have examined patient prior to procedure, No changes to prior documentation, H&P is in [facility] EMR on date indicated and Risks and benefits of the procedure reviewed PLANNED PROCEDURE: Operation Date: 02/03/25 07:10 Proposed Procedures p Rectal Exam Under Anesthesia(Not Applicable) - Zuhair Barahona MD s POSSIBLE Hemorrhoidectomy(Not Applicable) - Zuhair Barahona MD
[2025-02-03] MEDS: ceFAZolin 2,000 mg SDV 2000 MG IVP (07:10)
[2025-02-03] MEDS: neomycin-poly-bacitracin oint 28 gm 3 APPLIC TOPICAL (07:44)
[2025-02-03] MEDS: lidocaine 2% jelly 1 APPLIC/6 ML TUBE 6 APPLIC TOPICAL (07:45)
[2025-02-03] MEDS: lidocaine-epi 1% PF 1:200,000 30 mL SDV INJECTION (07:45)
[2025-02-03] MEDS: BUPivacaine 0.25% INJ 30 mL INJECTION (07:45)
--- NOTE | 2025-02-03 07:59 | PM.OP ---
Operative Report Date of procedure: February 03, 2025 Pre-op diagnosis: Hemorrhoids Post-op diagnosis: Internal hemorrhoids and perianal skin tag Post-op findings: There was anterior internal hemorrhoid with an associated perianal skin tag noted. There was significant dermatitis in the perianal region and bilateral gluteal folds. There was a small posterior anal fissure Procedure done: Exam under anesthesia, hemorrhoidectomy Specimens removed/disposition: Hemorrhoid Surgeon: Zuhair Barahona MD Industrial Tech Instructor: [facility] staff Estimated blood loss: 5 Complications: none apparent Brief History: 64-year-old female with chronic hemorrhoidal disease who presented to my office for evaluation for possible excision. After discussion risk-benefit as documented in my preop note we decided to proceed. Procedure: Patient was brought into the OR, she was placed in a supine position. General anesthesia was given. She was then flipped to a prone position. The perianal region was prepped and draped in usual sterile fashion. A timeout was conducted. Exam under anesthesia was done digital rectal examination was done there was evidence of an anterior hemorrhoid with associated external skin tag. There was also 2 very small hemorrhoids on the lateral columns that did not require intervention. I then proceeded with anterior hemorrhoid hemorrhoidectomy, I grasped the hemorrhoid with an Allis clamp and proceeded to ligate the inflow with a #3-0 Chromic Gut, I then carefully marked the resection at the level of the skin using electrocautery, I then carefully dissected the hemorrhoid from the surrounding tissues with blunt and sharp dissection taking careful consideration of preserving the anal sphincter. The hemorrhoid was then completely transected. The defect created from the hemorrhoidectomy was then closed using the #3-0 chromic gut that was used to ligate the inflow, I take careful consideration to provide good alignment of the mucocutaneous junction. Hemostasis was verified. Local anesthesia was infiltrated in the anus. Final evaluation of the anal canal showed no evidence of additional pathology. Lidocaine jelly was placed into the anal canal and a Surgifoam soaked in lidocaine jelly was inserted through provide short-term analgesia. At the end of the procedure all counts were correct the patient tolerated well the procedure she was transferred to the PACU in stable condition
--- NOTE | 2025-02-03 09:32 | ANE.PACU2 ---
Inpatient post-anesthesia follow up: Airway intact: Yes Vital signs: Temperature 97.6 F Pulse Rate 79 Respiratory Rate 18 Blood Pressure 130/76 Pulse Oximetry 98 Oxygen Delivery Me thod Room Air Oxygen Flow Rate 8 Fraction of Inspir ed Oxygen Hydration adequate: Yes Nausea and vomiting: No Pain level: 1 Mental status: Baseline
== END 2025-02-03 09:32 | disposition home or self-care (01) ==
PROVIDERS: PCP Nurse Practitioner; Visit Provider Surgery
PROC: (CPT 46255; principal; 2025-02-03 07:00)
PROC: (CPT 46255; 2025-02-03 07:00)
DX: K64.8 Other hemorrhoids (principal); K64.4 Residual hemorrhoidal skin tags; I10 Essential (primary) hypertension; K21.9 Gastro-esophageal reflux disease without esophagitis; Z87.891 Personal history of nicotine dependence
CPT/HCPCS: 46255; 88304; A4216; J0690; J1885; J2250; J2704; J3010; J3490; J7030; J9999

== ENCOUNTER → 2025-02-24 10:33 | Outpatient (BNVA) | payer OTHER, SELFPAY | PROVIDERS: PCP Nurse Practitioner; Visit Provider Surgery | DX: Z98.890 Other specified postprocedural states (principal) | CPT/HCPCS: 99024 ==

== ENCOUNTER 2025-02-27 09:42 | Outpatient (CLI) | payer OTHER, SELFPAY ==
--- NOTE | 2025-02-27 09:49 | MM_ITS ---
WS: [id number] RIGHT 3D TOMOSYNTHESIS DIGITAL MAMMOGRAPHY WITH CAD CLINICAL INFORMATION: ABNORMAL MAMMOGRAM HISTORY: Additional views TECHNIQUE: 3 views of the right breast were obtained. FINDINGS: The right breast is composed of heterogeneous fibroglandular density tissue, which can limit the detection of small underlying mass lesions. Persistent slightly spiculated asymmetry near the 12 o'clock position. This partially compresses out. Ultrasound described below. ULTRASOUND BREAST RIGHT TECHNIQUE: Ultrasound right breast focused area of concern. CLINICAL INFORMATION: ABNORMAL MAMMOGRAM FINDINGS: Ultrasound RIGHT breast 11 to 1 o'clock position. Incidental ductal ectasia. No suspicious cystic or solid lesions. Recommend return to annual screening mammography MM/MM diag RT tomosynthesis [id number] IMPRESSION: . DENSITY: The breasts are heterogeneously dense, which may obscure small masses. BI-RADS: 2 - Benign FOLLOW UP: 1 Year Follow-up Recommend return to annual screening mammography.
== END 2025-02-27 09:43 | disposition home or self-care (01) ==
LOC: RAD 09:42
PROVIDERS: PCP Nurse Practitioner; Visit Provider Nurse Practitioner
DX: R92.8 Other abnormal and inconclusive findings on diagnostic imaging of breast (principal); R92.331 Mammographic heterogeneous density, right breast; N64.89 Other specified disorders of breast; R92.321 Mammographic fibroglandular density, right breast
CPT/HCPCS: 76642; 77061; G0279

== ENCOUNTER → 2025-03-17 08:06 | Outpatient (BNVA) | payer OTHER, SELFPAY | PROVIDERS: PCP Nurse Practitioner; Visit Provider Dermatology | DX: L24.9 Irritant contact dermatitis, unspecified cause (principal) | CPT/HCPCS: 99204 ==